=== PATIENT | male | born 1965 | race African-American/Black ===

== ENCOUNTER 2016-11-07 22:50 | Emergency (ER) | payer BC ==
[~2016-11-07] VITALS: Ht 188 cm; Wt 95.3 kg
[~2016-11-07 22:50] MED LIST: LEVO100T5 PO; METO25TA9 PO; ONDA4TAB12 PO
[2016-11-07 23:11] LABS: BASO % 1 % (0-3); EOS % 1 % (0-3); HEMATOCRIT 40.5 % (39.0-53.0); HEMOGLOBIN 13.4 g/dL (13.0-17.5); LYMPH # 2.4 x10^3/uL (1.0-4.8); LYMPH % 34 % (24-48); MEAN CORPUSCULAR HEMOGLOBIN 31 pg (25-35); MEAN CORPUSCULAR HGB CONC 33 g/dL (31-37); MEAN CORPUSCULAR VOLUME 93 fL (79-100); MONO % 12 % (0-9); NEUT % 52 % (31-73); PLATELET COUNT 202 x10^3/uL (140-400); RED BLOOD COUNT 4.34 x10^6/uL (4.30-5.70); RED CELL DISTRIBUTION WIDTH 14.5 % (11.5-14.5); WHITE BLOOD COUNT 6.9 x10^3/uL (4.0-11.0)
[2016-11-07] MEDS ORDERED: NITROGLYCERIN SUBLINGUAL 0.4 MG BOTTLE OF 25. SL PRN (23:15)
[2016-11-07] MEDS ORDERED: ONDANSETRON PF 4 MG/2 ML VIAL. IV ONE (23:15)
[2016-11-07 23:21] LABS: CALCIUM 8.9 mg/dL (8.5-10.1); GFR 95.7
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
[2016-11-07 23:27] LABS: ALBUMIN 3.9 g/dL (3.4-5.0); DIRECT BILIRUBIN 0.1 mg/dL (0.0-0.2); TOTAL BILIRUBIN 0.3 mg/dL (0.2-1.0); TOTAL PROTEIN 7.6 g/dL (6.4-8.2)
[2016-11-07] MEDS ORDERED: ASPIRIN 81 MG TAB.CHEW PO ONE (23:30)
[2016-11-08 01:00] VITALS: BP 115/77
[2016-11-08] MEDS ORDERED: ACETAMINOPHEN 325 MG TABLET. PO PRN (01:15)
[2016-11-08] MEDS ORDERED: MORPHINE SULFATE 2 MG/ML DISP.SYRIN. IV PRN (01:15)
[2016-11-08] MEDS ORDERED: ONDANSETRON PF 4 MG/2 ML VIAL. IV PRN (01:15)
--- NOTE | 2016-11-08 06:16 | EKG ---
[facility] [address] [place] [address] Test Date: 2016-11-07 Test Time: 22:55:54 Pat Name: VICKY DUARTE Department: Room: Gender: M Ride Operator: : 1965 Requested By: LORRAINE HALL Order Number: [id number] Reading MD: Paige Suarez Measurements Intervals [place] Rate: 83 P: 49 [place]: 148 QRS: 38 QRSD: 90 T: 34 QT: 336 QTc: 400 Interpretive Statements SINUS RHYTHM NORMAL EKG Electronically Signed On 11-10-2016 10:45:20 CDT by Paige Suarez
--- NOTE | 2016-11-08 07:26 | RAD ---
Indication: Chest pain. Technique: Two-view chest radiograph was obtained. Comparison is from April 24, 2014. Findings: Calcified granuloma on the right is stable. There is no airspace disease. There is no pleural effusion. The heart is not enlarged and there is no heart failure. There is an old left rib fracture. Impression: No acute thoracic findings.
== END 2016-11-08 01:25 | disposition left against medical advice (07) ==
LOC: ER 22:50
DX: R07.89 Other chest pain (principal); R06.02 Shortness of breath; I11.0 Hypertensive heart disease with heart failure; I50.9 Heart failure, unspecified; E03.9 Hypothyroidism, unspecified; F10.10 Alcohol abuse, uncomplicated; Z88.0 Allergy status to penicillin
CPT/HCPCS: 36415; 71020; 80048; 80076; 83690; 83880; 84484; 85027; 93005; 96374; 99285; J2405

== ENCOUNTER 2018-05-25 17:42 | Emergency (ER) | payer BC, OTHER ==
[~2018-05-25 17:42] MED LIST changes: +METO-239 PO; -METO25TA9 PO
== END 2018-05-25 19:00 | disposition left against medical advice (07) ==
LOC: ER 17:42
DX: M25.561 Pain in right knee (principal); R22.41 Localized swelling, mass and lump, right lower limb; M79.606 Pain in leg, unspecified; Z53.21 Procedure and treatment not carried out due to patient leaving prior to being seen by health care provider

== ENCOUNTER 2018-07-22 03:40 | Emergency (ER) | payer MEDICARE, OTHER ==
[~2018-07-22] VITALS: Ht 188 cm; Wt 95.3 kg
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
[2018-07-22 04:38] LABS: BASO % 0 % (0-3); EOS % 0 % (0-3); HEMATOCRIT 43.1 % (39.0-53.0); HEMOGLOBIN 15.2 g/dL (13.0-17.5); LYMPH # 1.2 x10^3/uL (1.0-4.8); LYMPH % 14 % (24-48); MEAN CORPUSCULAR HEMOGLOBIN 32 pg (25-35); MEAN CORPUSCULAR HGB CONC 35 g/dL (31-37); MEAN CORPUSCULAR VOLUME 91 fL (79-100); MONO # 0.7 x10^3/uL (0.0-1.1); MONO % 7 % (0-9); NEUT # 6.9 x10^3uL (1.8-7.7); NEUT % 79 % (31-73); PLATELET COUNT 214 x10^3/uL (140-400); RED BLOOD COUNT 4.73 x10^6/uL (4.30-5.70); RED CELL DISTRIBUTION WIDTH 14.1 % (11.5-14.5); WHITE BLOOD COUNT 8.8 x10^3/uL (4.0-11.0)
[2018-07-22] MEDS ORDERED: CONTRAST GIVEN. MC PRN (04:45)
[2018-07-22 04:48] LABS: BILIRUBIN,URINE NEGATIVE (NEG); CLARITY,URINE CLEAR; COLOR,URINE YELLOW; NITRITE,URINE NEGATIVE (NEG); PH,URINE 5.5; PROTEIN,URINE 30 mg/dL (NEG-TRACE); UROBILINOGEN,URINE 0.2 mg/dL (0.2 mg/dL)
[2018-07-22 04:49] LABS: PROTHROMBIN TIME PATIENT 12.4 SEC (11.7-14.0)
[2018-07-22 04:50] LABS: CALCIUM 9.4 mg/dL (8.5-10.1); CREATININE 0.9 mg/dL (0.7-1.3); GFR 107.2; POTASSIUM 3.8 mmol/L (3.5-5.1)
[2018-07-22 04:55] LABS: ALBUMIN 4.1 g/dL (3.4-5.0); ALBUMIN/GLOBULIN RATIO 1.1 (1.0-1.7); TOTAL BILIRUBIN 0.8 mg/dL (0.2-1.0)
[2018-07-22 04:55] LABS: BACTERIA,URINE 0 /HPF (0-FEW); RBC,URINE OCC /HPF (0-2); SQUAMOUS EPITHELIAL CELL,UR OCC /LPF; WBC,URINE OCC /HPF (0-4)
[2018-07-22] MEDS ORDERED: fentaNYL PF VIAL 100 MCG/2 ML VIAL IV ONE (05:00)
[2018-07-22] MEDS ORDERED: IOHEXOL 240 MG/ML 50ML VIAL. PO ONE (05:00)
[2018-07-22] MEDS ORDERED: FAMOTIDINE 20 MG/2 ML VIAL IVP ONE (05:00)
[2018-07-22] MEDS ORDERED: ONDANSETRON PF 4 MG/2 ML VIAL. IV ONE (05:00)
[2018-07-22] MEDS ORDERED: IOHEXOL 300 MG/ML 100ML VIAL. IV ONE (05:00)
[2018-07-22] MEDS ORDERED: IV NORMAL SALINE 1000ML BAG 1,000 ML IV ONE (05:00)
[2018-07-22] MEDS ORDERED: MORPHINE SULFATE 4 MG/ML VIAL. IV ONE (05:30)
[2018-07-22] MEDS ORDERED: IV RINGERS,LACTATED 500ML 1,000 ML IV ONE (07:00)
--- NOTE | 2018-07-22 07:02 | RAD ---
PQRS Compliance Statement: One or more of the following individualized dose reduction techniques were utilized for this examination: 1. Automated exposure control 2. Adjustment of the mA and/or kV according to patient size 3. Use of iterative reconstruction technique CT abdomen/pelvis with contrast 07/22/2018 6:34 AM INDICATION: Abdominal pain, nausea COMPARISON: CT abdomen/pelvis May 05, 2016 TECHNIQUE: Multiple axial CT images of the abdomen and pelvis were obtained after the intravenous administration of 75 mL Omnipaque 300. Coronal and sagittal reformats are provided. FINDINGS: Mild subsegmental atelectasis at the left lung base. Heart size is within normal limits. Hypoattenuation of the hepatic parenchyma suggestive of hepatic steatosis. Coarse calcification is noted along the lateral aspect of the anterior superior segment of the right hepatic lobe which may be sequela of prior vascular or infectious insult. Spleen, bilateral adrenal glands, pancreas and gallbladder are normal in appearance. Abdominal aorta is normal in course and caliber with moderate calcified atheromatous plaque. No pathologically enlarged lymph nodes are identified in the abdomen and pelvis. There is no free fluid or free intraperitoneal air. The kidneys enhance symmetrically. There is no suspicious renal mass. There is no hydronephrosis. There are no suspected calculi within the kidneys, ureters or urinary bladder. There is mild diverticulosis. Oral contrast was administered. Opacified bowel loops demonstrate normal mucosal fold pattern. Mild bowel wall thickening involving the ascending colon and transverse colon extending to the splenic flexure. There is no significant pericolonic inflammatory change. Consideration may be given for colitis versus underdistention. No pericolonic abscess or pneumoperitoneum. Small fat-containing bilateral inguinal hernias are identified. Urinary bladder is within normal limits given degree of distention. Prostate and seminal vesicles are normal in appearance. No suspicious osseous abnormality is identified. IMPRESSION: 1. Mild bowel wall thickening involving the ascending colon and transverse colon extending to the splenic flexure. There is no significant pericolonic inflammatory change. Consideration may be given for colitis versus underdistention. Given distribution, ischemic colitis is a differential consideration. 2. Mild diverticulosis. Electronically signed by: Khloe Corona MD (07/22/2018 6:58 AM) [id number]
[2018-07-22 07:18] VITALS: BP 195/109
[2018-07-22] MEDS ORDERED: TRAM50TA PO (07:18)
[2018-07-22] MEDS ORDERED: MESA800T2 PO (07:18)
[2018-07-22] MEDS ORDERED: METO10TA81 PO (07:18)
[2018-07-22] MEDS ORDERED: KETOROLAC 15 MG/ML VIAL. IV ONE (07:30)
--- NOTE | 2018-07-22 16:02 | EKG ---
[facility] [address] [place] [address] Test Date: 2018-07-22 Test Time: 04:31:33 Pat Name: VICKY DUARTE Department: Room: Gender: M Business Analysis Specialist: : 1965 Requested By: REYNA MURRAY Order Number: [id number] Reading MD: Krishan Maravilla Measurements Intervals [place] Rate: 107 P: 83 SD: 132 QRS: 20 QRSD: 84 T: 44 QT: 330 QTc: 446 Interpretive Statements SINUS TACHYCARDIA QRS(T) CONTOUR ABNORMALITY CONSISTENT WITH ANTEROSEPTAL INFARCT PROBABLY OLD ABNORMAL ECG Electronically Signed On 07-24-2018 11:07:32 SERGER by Krishan Maravilla
== END 2018-07-22 07:45 | disposition home or self-care (01) ==
LOC: ER 03:40
DX: R10.84 Generalized abdominal pain (principal); K59.00 Constipation, unspecified; E03.9 Hypothyroidism, unspecified; I11.0 Hypertensive heart disease with heart failure; I50.9 Heart failure, unspecified; F17.210 Nicotine dependence, cigarettes, uncomplicated; F10.20 Alcohol dependence, uncomplicated; Y90.9 Presence of alcohol in blood, level not specified; Z88.0 Allergy status to penicillin
CPT/HCPCS: 36415; 74177; 80053; 81001; 82553; 83690; 84484; 85025; 85610; 85730; 93005; 96361; 96374; 96375; 99284; J1885; J2270; J2405; J3010; J3490; J7030; J7120; Q9966; Q9967

== ENCOUNTER 2019-07-12 10:23 | Inpatient (IN) | payer OTHER ==
[~2019-07-12] VITALS: Ht 188 cm; Wt 88.5 kg
[~2019-07-12 10:23] MED LIST changes: +MESA800T2 PO; +METO10TA81 PO; +TRAM50TA PO
[2019-07-12 10:59] LABS: BASO # 0.1 x10^3/uL (0.0-0.2); BASO % 1 % (0-3); EOS % 0 % (0-3); HEMATOCRIT 38.6 % (39.0-53.0); HEMOGLOBIN 13.1 g/dL (13.0-17.5); LYMPH # 1.8 x10^3/uL (1.0-4.8); LYMPH % 18 % (24-48); MEAN CORPUSCULAR HEMOGLOBIN 30 pg (25-35); MEAN CORPUSCULAR HGB CONC 34 g/dL (31-37); MEAN CORPUSCULAR VOLUME 88 fL (79-100); MONO # 1.6 x10^3/uL (0.0-1.1); MONO % 16 % (0-9); NEUT # 6.4 x10^3/uL (1.8-7.7); NEUT % 64 % (31-73); PLATELET COUNT 370 x10^3/uL (140-400); RED BLOOD COUNT 4.39 x10^6/uL (4.30-5.70); RED CELL DISTRIBUTION WIDTH 13.8 % (11.5-14.5)
[2019-07-12] MEDS ORDERED: IV NORMAL SALINE 1000ML BAG 1,000 ML IV ONE (11:00)
[2019-07-12 11:08] LABS: PROTHROMBIN TIME PATIENT 12.7 SEC (11.7-14.0)
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
[2019-07-12 11:14] LABS: BILIRUBIN,URINE NEGATIVE (NEG); CLARITY,URINE CLEAR; COLOR,URINE YELLOW; NITRITE,URINE NEGATIVE (NEG); PH,URINE 7.5; PROTEIN,URINE NEGATIVE (NEG-TRACE); UROBILINOGEN,URINE 0.2 mg/dL (0.2 mg/dL)
[2019-07-12] MEDS ORDERED: ONDANSETRON PF 4 MG/2 ML VIAL. IV ONE (11:15)
[2019-07-12] MEDS ORDERED: MORPHINE SULFATE 4 MG/ML VIAL. IV ONE (11:15)
--- NOTE | 2019-07-12 11:21 | RAD ---
EXAM: PA and Lateral Views of the Chest DATE: 07/12/2019 10:49 AM INDICATION: Weakness, chest tightness, pain with inspiration COMPARISON: 11/07/2016, 07/22/2018 FINDINGS/ IMPRESSION: Compared to prior radiograph 11/07/2016, there is now a prominent anterior mediastinal mass with mild mass effect on the trachea extending into the right greater than left paratracheal region. This should be further assessed with CT. Small right lung nodule or patchy opacities are seen. No pleural effusion or pneumothorax. Findings of thoracic mass discussed with referring provider Abigail Smart with recommendation of CT chest at 07/12/2019, 11:15 AM. Electronically signed by: Darrin Haas MD (07/12/2019 11:18 AM) [id number]
[2019-07-12 11:22] LABS: CALCIUM 10.4 mg/dL (8.5-10.1); CREATININE 0.8 mg/dL (0.7-1.3); GFR 122.4; POTASSIUM 4.4 mmol/L (3.5-5.1)
[2019-07-12 11:24] LABS: BACTERIA,URINE 0 /HPF (0-FEW); SQUAMOUS EPITHELIAL CELL,UR OCC /LPF; WBC,URINE OCC /HPF (0-4)
[2019-07-12 11:28] LABS: ALBUMIN 3.3 g/dL (3.4-5.0); ALBUMIN/GLOBULIN RATIO 0.6 (1.0-1.7); TOTAL BILIRUBIN 0.4 mg/dL (0.2-1.0); TOTAL PROTEIN 9.2 g/dL (6.4-8.2)
[2019-07-12] MEDS ORDERED: IOHEXOL 350 MG/ML 100 ML VIAL. IV ONE (11:30)
[2019-07-12] MEDS ORDERED: CONTRAST GIVEN. MC PRN (11:30)
[2019-07-12 11:39] LABS: CREATINE KINASE 48 U/L (39-308)
--- NOTE | 2019-07-12 11:59 | EKG ---
[facility] [address] [place] [address] Test Date: 2019-07-12 Test Time: 10:36:01 Pat Name: VICKY DUARTE Department: Room: Gender: M Knowledge Engineer: : 1965 Requested By: KATRINA AG Order Number: [id number] Reading MD: Measurements Intervals [place] Rate: 112 P: 90 ID: [id number] QRS: 8 QRSD: 88 T: 31 QT: 308 QTc: 422 Interpretive Statements SINUS TACHYCARDIA QRS(T) CONTOUR ABNORMALITY CONSIDER ANTEROLATERAL MYOCARDIAL DAMAGE CONSIDER INFERIOR MYOCARDIAL DAMAGE POSSIBLY ABNORMAL ECG RI6.01 No previous ECG available for comparison
--- NOTE | 2019-07-12 12:11 | RAD ---
Chest CTA History: Shortness of air, mediastinal mass Technique: After bolus of intravenous contrast, CT imaging was performed of the chest. Multiplanar reconstruction images to include MIP reconstruction images are submitted. Exposure: One or more of the following individualized dose reduction techniques were utilized for this examination: 1. Automated exposure control 2. Adjustment of the mA and/or kV according to patient size 3. Use of iterative reconstruction technique. Comparison: None other than CT abdomen pelvis exam June 2018 Findings: Exam is nondiagnostic for evaluation for pulmonary embolic disease due to degree of contrast opacification of the pulmonary arteries. Thoracic aortic caliber is overall within normal limits. There is some motion degradation which limits accurate evaluation for nonflow limiting dissection flap of the ascending thoracic aorta, no convincing dissection flap identified. There is a large mass of the mediastinum eccentric to the right about 6.1 cm transverse by 6.5 cm AP by about 5.4 cm CC. Internal density measurements are about 42 Hounsfield units. 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 There is some coronary calcification. There is noncalcified right upper lobe pulmonary mass with somewhat spiculated margins about 1.7 cm CC by 1.7 cm AP by 1.7 cm transverse best seen image 62 series 3. There are a couple small irregular nodules of the right upper lobe closer to the apex such as seen image 35, largest about 0.5 cm. There is separate calcified nodule of the right upper lobe. There is no pleural or pericardial fluid. Minimal density of the right lower lobe near the base more likely atelectasis. There is probable hepatic steatosis. There is new left adrenal nodule about 2 cm. There is a new lytic lesion of the anterior right T12 vertebral body about 1.6 cm AP. There is superior thoracic levoscoliosis. Impression: 1. There is large right mediastinal mass, also spiculated right upper lobe pulmonary mass which may be due to primary lung neoplasm. There is new lytic lesion of the T12 vertebral body and new left adrenal nodule concerning for metastatic disease. There are a couple of small right upper lobe pulmonary nodules near the apex. 2. There is coronary calcification. 3. Exam is nondiagnostic for evaluation for pulmonary embolic disease. Electronically signed by: Davis Cleary MD (07/12/2019 12:09 PM) [id number]
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
[2019-07-12] MEDS ORDERED: cefTRIAXone IV Push 1 GM VIAL. IVP ONE (13:15)
[2019-07-12 15:24] VITALS: BP 165/90
[2019-07-12] MEDS ORDERED: LISI1TAB19 PO (15:47)
[2019-07-12] MEDS ORDERED: VARE1TAB21 PO (15:47)
[2019-07-12] MEDS ORDERED: ATOR20TA58 PO (15:47)
[2019-07-12] MEDS ORDERED: FLU VAX QS 2019-20 (36MOS+)/PF 0.5 ML SYRINGE. VAX IM ONE (16:00)
[2019-07-12] MEDS: fentaNYL PF VIAL 100 MCG/2 ML VIAL IVP PRN ×2 (16:02→20:21)
[2019-07-12] MEDS: hydroCHLOROthiazide 12.5 MG CAPSULE PO SCH (16:04)
[2019-07-12] MEDS: LISINOPRIL 20 MG TABLET PO SCH (16:04)
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
[2019-07-12] MEDS: LORazepam 0.5 MG TABLET PO PRN (16:57)
[2019-07-12] MEDS: oxyCODONE/APAP 5/325 1 TAB TABLET PO PRN ×2 (16:58→23:36)
[2019-07-12 19:30] VITALS: BP 154/81
[2019-07-12] MEDS: ATORVASTATIN CALCIUM 20 MG TABLET PO SCH (20:21)
[2019-07-12] MEDS: ZOLPIDEM 5 MG TABLET. PO PRN (22:14)
[2019-07-12 22:59] VITALS: BP 153/96
[2019-07-13] VITALS (7 sets, daily range): BP systolic 127–162; BP diastolic 88–101
[2019-07-13] MEDS: LEVOTHYROXINE 100 MCG TABLET PO SCH (03:51)
[2019-07-13] MEDS: fentaNYL PF VIAL 100 MCG/2 ML VIAL IVP PRN ×5 (06:40→23:19)
[2019-07-13] MEDS: hydroCHLOROthiazide 12.5 MG CAPSULE PO SCH (07:46)
[2019-07-13] MEDS ORDERED: LIDOCAINE WITH 8.4% SOD BICARB 3 ML DISP.SYRIN. ONE (07:46)
[2019-07-13] MEDS: LISINOPRIL 20 MG TABLET PO SCH (07:47)
[2019-07-13] MEDS ORDERED: fentaNYL PF VIAL 100 MCG/2 ML VIAL ONE (07:58)
[2019-07-13] MEDS ORDERED: MIDAZOLAM HCL/PF 2 MG/2 ML VIAL. ONE ×2 (07:58→09:04)
[2019-07-13] MEDS ORDERED: MIDAZOLAM HCL/PF 2 MG/2 ML VIAL. IV ONE (08:45)
[2019-07-13] MEDS ORDERED: fentaNYL PF VIAL 100 MCG/2 ML VIAL IV ONE (08:45)
[2019-07-13] MEDS ORDERED: LIDOCAINE WITH 8.4% SOD BICARB 3 ML DISP.SYRIN. IJ ONE (08:45)
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
[2019-07-13] MEDS ORDERED: NON FORMULARY ITEM (Lisinopril/Hydrochlorothiazide (Lisinopril-Hctz 20-12.5 Mg Tab) 1 TAB) PO SCH (09:00)
[2019-07-13] MEDS: LORazepam 0.5 MG TABLET PO PRN (09:43)
[2019-07-13] MEDS: oxyCODONE/APAP 5/325 1 TAB TABLET PO PRN ×3 (09:44→22:43)
--- NOTE | 2019-07-13 10:09 | NUR ---
SW following for discharge planning. Discussed with RN, pt is from home with . CT guided biopsy today. RN advised no SW needs at this time. SW will continue to follow.
[2019-07-13] MEDS ORDERED: fentaNYL 12MCG/HR PATCH 1 PATCH PATCH.TD72 TD SCH (11:45)
[2019-07-13] MEDS: POLYETHYLENE GLYCOL 3350 17 GM PACKET. PO SCH (11:48)
[2019-07-13] MEDS: PSYLLIUM HUSK (SUGAR FREE) 1 PKT PACKET PO SCH (11:48)
[2019-07-13] MEDS: IPRATRPIUM/ALBUTEROL 0.5/2.5MG 3 ML NEBU. NEB SCH ×3 (12:00→20:46)
--- NOTE | 2019-07-13 12:14 | PDOC ---
PULMONARY PROGRESS NOTES Subjective s/p bx of thoracic spine some back pain Vitals Vital Signs Date Time Temp Pulse Resp B/P (MAP) Pulse Ox O2 Delivery O2 Flow Rate FiO2 07/13/19 11:51 96 Room Air 07/13/19 10:39 97.6 116 18 127/94 (105) 97.6 07/13/19 09:23 2.0 ROS: No Chest Pain General: Alert, No acute distress Lungs: Clear Cardiovascular: S1 Abdomen: Soft Neuro Exam: Alert Extremities: No Edema Skin: Warm Labs Laboratory Tests Test 07/12/19 10:45 07/12/19 11:05 White Blood Count 10.0 x10^3/uL (4.0-11.0) Red Blood Count 4.39 x10^6/uL (4.30-5.70) Hemoglobin 13.1 g/dL (13.0-17.5) Hematocrit 38.6 % (39.0-53.0) Mean Corpuscular Volume 88 fL (79-100) Mean Corpuscular Hemoglobin 30 pg (25-35) Mean Corpuscular Hemoglobin Concent 34 g/dL (31-37) Red Cell Distribution Width 13.8 % (11.5-14.5) Platelet Count 370 x10^3/uL (140-400) Neutrophils (%) (Auto) 64 % (31-73) Lymphocytes (%) (Auto) 18 % (24-48) Monocytes (%) (Auto) 16 % (0-9) Eosinophils (%) (Auto) 0 % (0-3) Basophils (%) (Auto) 1 % (0-3) Neutrophils # (Auto) 6.4 x10^3/uL (1.8-7.7) Lymphocytes # (Auto) 1.8 x10^3/uL (1.0-4.8) Monocytes # (Auto) 1.6 x10^3/uL (0.0-1.1) Eosinophils # (Auto) 0.0 x10^3/uL (0.0-0.7) Basophils # (Auto) 0.1 x10^3/uL (0.0-0.2) Prothrombin Time 12.7 SEC (11.7-14.0) Prothromb Time International Ratio 1.0 (0.8-1.1) Activated Partial Thromboplast Time 40 SEC (24-38) Sodium Level 136 mmol/L (136-145) Potassium Level 4.4 mmol/L (3.5-5.1) Chloride Level 98 mmol/L (98-107) Carbon Dioxide Level 30 mmol/L (21-32) Anion Gap 8 (6-14) Blood Urea Nitrogen 12 mg/dL (8-26) Creatinine 0.8 mg/dL (0.7-1.3) Estimated GFR (Cockcroft-Gault) 122.4 BUN/Creatinine Ratio 15 (6-20) Glucose Level 110 mg/dL (70-99) Lactic Acid Level 1.1 mmol/L (0.4-2.0) Calcium Level 10.4 mg/dL (8.5-10.1) Total Bilirubin 0.4 mg/dL (0.2-1.0) Aspartate Amino Transf (AST/SGOT) 21 U/L (15-37) Alanine Aminotransferase (ALT/SGPT) 13 U/L (16-63) Alkaline Phosphatase 118 U/L (46-116) Creatine Kinase 48 U/L (39-308) Creatine Kinase MB (Mass) < 0.5 ng/mL (0.0-3.6) Creatine Kinase MB Relative Index % (0-4) Troponin I Quantitative < 0.017 ng/mL (0.000-0.055) Total Protein 9.2 g/dL (6.4-8.2) Albumin 3.3 g/dL (3.4-5.0) Albumin/Globulin Ratio 0.6 (1.0-1.7) Urine Collection Type Unknown Urine Color Yellow Urine Clarity Clear Urine pH 7.5 Urine Specific [place] 1.010 Urine Protein Negative mg/dL (NEG-TRACE) Urine Glucose (UA) Negative mg/dL (NEG) Urine Ketones (Stick) Negative mg/dL (NEG) Urine Blood Negative (NEG) Urine Nitrite Negative (NEG) Urine Bilirubin Negative (NEG) Urine Urobilinogen Dipstick 0.2 mg/dL (0.2 mg/dL) Urine Leukocyte Esterase Negative (NEG) Urine RBC 1-2 /HPF (0-2) Urine WBC Occ /HPF (0-4) Urine Squamous Epithelial Cells Occ /LPF Urine Bacteria 0 /HPF (0-FEW) Medications Active Scripts Medications Dose Route/Sig Max Daily Dose Days Date Category Chantix (Varenicline Tartrate) 1 Mg Tablet 1 Mg PO BID 07/12/19 Reported Lisinopril-Hctz 20-12.5 Mg Tab (Lisinopril/Hydrochlorothiazide) 1 Each Tablet 1 Tab PO DAILY 07/12/19 Reported Atorvastatin Calcium 20 Mg Tablet 20 Mg PO HS 07/12/19 Reported Levothyroxine Sodium 100 Mcg Tablet 1 Tab PO DAILY 04/24/14 Reported Impression . 1. Abnormal CT chest with a large mediastinal mass, right upper lobe spiculated mass, T12 lytic lesion and left adrenal gland metastasis. These findings are highly suspicious for stage 4 bronchogenic cancer favoring small cell cancer. s/p CT-guided biopsy of T-spine lytic lesion to confirm the diagnosis. 2. Dyspnea secondary to large mediastinal mass and underlying possible chronic obstructive pulmonary disease. 3. Back pain, likely due to thoracic lytic lesion. Plan . 1. s/p CT-guided biopsy of T12 lesion to make a definite diagnosis. 2. Once diagnosis is confirmed, then he would need Medical Oncology and Radiation Oncology consults. 3. Continue empiric antibiotics for now. 4. P.r.n. bronchodilators. 5. Discussed with RN and DR Brady . further recommendations to follow. MARISOL TIMMONS MD Jul 13, 2019 12:14
--- NOTE | 2019-07-13 16:06 | RAD ---
Fluoroscopically guided biopsy, T12 vertebral body. 07/13/2019 2:00 PM Clinical Indication: T12 lytic lesion, likely metastasis. Discussion: The procedure was explained in its entirety to the patient or the patients designated field representative/health education by a member of the treatment team, including a discussion of the risks, benefits and commonly accepted alternatives to the procedure, as well as the expected consequences of no therapy whatsoever. Discussion of the risks included, but was not limited to, those that are most frequent and those that are rare but possibly severe or life-threatening, as well as the possibility of unforeseen complications. All elements of maximal sterile barrier technique including the use of a cap, mask, sterile gown, sterile gloves, large sterile sheet, appropriate hand hygiene, and 2% chlorhexidine for cutaneous antisepsis (or acceptable alternative antiseptic per current guidelines) were followed for this procedure. The posterior thoracolumbar junction was prepped and draped using sterile barrier technique. 1% lidocaine was administered for local anesthesia. Under direct fluoroscopic guidance a trocar needle was advanced into transpedicular fashion into the middle, superior right side of the T12 vertebral body. Multiple core biopsies were obtained and placed in formalin. [place] were removed and manual pressure was held. No immediate complications were identified. Total fluoroscopy time: 6.0 min Dose area product: 4196.1 [id number] The procedures performed under conscious sedation including continuous cardiopulmonary monitoring via dedicated sedation nurse. [id number] sedation time:35 min Impression: T12 vertebral body biopsy
[2019-07-13] MEDS: ATORVASTATIN CALCIUM 20 MG TABLET PO SCH (20:01)
[2019-07-13] MEDS: ZOLPIDEM 5 MG TABLET. PO PRN (22:37)
[2019-07-14] MEDS: fentaNYL PF VIAL 100 MCG/2 ML VIAL IVP PRN ×4 (02:37→20:22)
[2019-07-14 03:00] VITALS: BP 140/94
[2019-07-14] MEDS: LEVOTHYROXINE 100 MCG TABLET PO SCH (06:38)
[2019-07-14 07:00] VITALS: BP 166/87
[2019-07-14] MEDS: IPRATRPIUM/ALBUTEROL 0.5/2.5MG 3 ML NEBU. NEB SCH ×4 (08:18→19:32)
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
--- NOTE | 2019-07-14 08:33 | PDOC ---
PULMONARY PROGRESS NOTES Subjective s/p bx of thoracic spine pain is better, has sob, cough, neb tx helps Vitals Vital Signs Date Time Temp Pulse Resp B/P (MAP) Pulse Ox O2 Delivery O2 Flow Rate FiO2 07/14/19 08:18 97 Room Air 07/14/19 07:00 98.1 107 18 166/87 (113) 98.1 07/13/19 09:23 2.0 ROS: No Chest Pain General: Alert, No acute distress Lungs: Clear Cardiovascular: S1, S2 Abdomen: Soft, Non-tender Neuro Exam: Alert, Oriented Extremities: No Edema Skin: Warm Labs Laboratory Tests Test 07/12/19 10:45 07/12/19 11:05 White Blood Count 10.0 x10^3/uL (4.0-11.0) Red Blood Count 4.39 x10^6/uL (4.30-5.70) Hemoglobin 13.1 g/dL (13.0-17.5) Hematocrit 38.6 % (39.0-53.0) Mean Corpuscular Volume 88 fL (79-100) Mean Corpuscular Hemoglobin 30 pg (25-35) Mean Corpuscular Hemoglobin Concent 34 g/dL (31-37) Red Cell Distribution Width 13.8 % (11.5-14.5) Platelet Count 370 x10^3/uL (140-400) Neutrophils (%) (Auto) 64 % (31-73) Lymphocytes (%) (Auto) 18 % (24-48) Monocytes (%) (Auto) 16 % (0-9) Eosinophils (%) (Auto) 0 % (0-3) Basophils (%) (Auto) 1 % (0-3) Neutrophils # (Auto) 6.4 x10^3/uL (1.8-7.7) Lymphocytes # (Auto) 1.8 x10^3/uL (1.0-4.8) Monocytes # (Auto) 1.6 x10^3/uL (0.0-1.1) Eosinophils # (Auto) 0.0 x10^3/uL (0.0-0.7) Basophils # (Auto) 0.1 x10^3/uL (0.0-0.2) Prothrombin Time 12.7 SEC (11.7-14.0) Prothromb Time International Ratio 1.0 (0.8-1.1) Activated Partial Thromboplast Time 40 SEC (24-38) Sodium Level 136 mmol/L (136-145) Potassium Level 4.4 mmol/L (3.5-5.1) Chloride Level 98 mmol/L (98-107) Carbon Dioxide Level 30 mmol/L (21-32) Anion Gap 8 (6-14) Blood Urea Nitrogen 12 mg/dL (8-26) Creatinine 0.8 mg/dL (0.7-1.3) Estimated GFR (Cockcroft-Gault) 122.4 BUN/Creatinine Ratio 15 (6-20) Glucose Level 110 mg/dL (70-99) Lactic Acid Level 1.1 mmol/L (0.4-2.0) Calcium Level 10.4 mg/dL (8.5-10.1) Total Bilirubin 0.4 mg/dL (0.2-1.0) Aspartate Amino Transf (AST/SGOT) 21 U/L (15-37) Alanine Aminotransferase (ALT/SGPT) 13 U/L (16-63) Alkaline Phosphatase 118 U/L (46-116) Creatine Kinase 48 U/L (39-308) Creatine Kinase MB (Mass) < 0.5 ng/mL (0.0-3.6) Creatine Kinase MB Relative Index % (0-4) Troponin I Quantitative < 0.017 ng/mL (0.000-0.055) Total Protein 9.2 g/dL (6.4-8.2) Albumin 3.3 g/dL (3.4-5.0) Albumin/Globulin Ratio 0.6 (1.0-1.7) Urine Collection Type Unknown Urine Color Yellow Urine Clarity Clear Urine pH 7.5 Urine Specific [place] 1.010 Urine Protein Negative mg/dL (NEG-TRACE) Urine Glucose (UA) Negative mg/dL (NEG) Urine Ketones (Stick) Negative mg/dL (NEG) Urine Blood Negative (NEG) Urine Nitrite Negative (NEG) Urine Bilirubin Negative (NEG) Urine Urobilinogen Dipstick 0.2 mg/dL (0.2 mg/dL) Urine Leukocyte Esterase Negative (NEG) Urine RBC 1-2 /HPF (0-2) Urine WBC Occ /HPF (0-4) Urine Squamous Epithelial Cells Occ /LPF Urine Bacteria 0 /HPF (0-FEW) Medications Active Scripts Medications Dose Route/Sig Max Daily Dose Days Date Category Chantix (Varenicline Tartrate) 1 Mg Tablet 1 Mg PO BID 07/12/19 Reported Lisinopril-Hctz 20-12.5 Mg Tab (Lisinopril/Hydrochlorothiazide) 1 Each Tablet 1 Tab PO DAILY 07/12/19 Reported Atorvastatin Calcium 20 Mg Tablet 20 Mg PO HS 07/12/19 Reported Levothyroxine Sodium 100 Mcg Tablet 1 Tab PO DAILY 04/24/14 Reported Impression . 1. Abnormal CT chest with a large mediastinal mass, right upper lobe spiculated mass, T12 lytic lesion and left adrenal gland metastasis. These findings are highly suspicious for stage 4 bronchogenic cancer favoring small cell cancer. s/p CT-guided biopsy of T-spine lytic lesion to confirm the diagnosis. 2. Dyspnea secondary to large mediastinal mass and underlying possible chronic obstructive pulmonary disease. 3. Back pain, likely due to thoracic lytic lesion. Plan . 1. s/p CT-guided biopsy of T12 lesion to make a definite diagnosis. fu path 2. Once diagnosis is confirmed, then he would need Medical Oncology and Radiation Oncology consults. 3. Continue empiric antibiotics for now. 4. bronchodilators qid 5. Discussed with pt, further recommendations to follow. VALERIO KANG MD Jul 14, 2019 08:33
[2019-07-14] MEDS: hydroCHLOROthiazide 12.5 MG CAPSULE PO SCH (08:49)
[2019-07-14] MEDS: LISINOPRIL 20 MG TABLET PO SCH (08:49)
[2019-07-14] MEDS: oxyCODONE/APAP 5/325 1 TAB TABLET PO PRN ×3 (08:52→22:43)
[2019-07-14] MEDS: PSYLLIUM HUSK (SUGAR FREE) 1 PKT PACKET PO SCH (08:54)
[2019-07-14] MEDS: POLYETHYLENE GLYCOL 3350 17 GM PACKET. PO SCH (08:54)
[2019-07-14 11:00] VITALS: BP 145/91
[2019-07-14] MEDS ORDERED: guaiFENesin DM 200MG/20MG 10 ML SYRUP PO PRN (11:00)
[2019-07-14] MEDS: ENOXAPARIN 40 MG/0.4 ML SYRINGE. SQ SCH (11:35)
[2019-07-14 15:00] VITALS: BP 148/87
[2019-07-14 19:15] VITALS: BP 154/89
[2019-07-14] MEDS: ATORVASTATIN CALCIUM 20 MG TABLET PO SCH (20:59)
[2019-07-14] MEDS: ZOLPIDEM 5 MG TABLET. PO PRN (20:59)
[2019-07-14 23:02] VITALS: BP 178/90
[2019-07-15 02:57] VITALS: BP 136/87
[2019-07-15] MEDS: LEVOTHYROXINE 100 MCG TABLET PO SCH (05:48)
[2019-07-15] MEDS: oxyCODONE/APAP 5/325 1 TAB TABLET PO PRN ×3 (05:50→23:01)
[2019-07-15 07:00] VITALS: BP 141/79
[2019-07-15] MEDS: IPRATRPIUM/ALBUTEROL 0.5/2.5MG 3 ML NEBU. NEB SCH ×4 (08:13→19:30)
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
--- NOTE | 2019-07-15 08:27 | PDOC ---
PULMONARY PROGRESS NOTES Subjective s/p bx of thoracic spine has back pain, sob, cough better w neb tx Vitals Vital Signs Date Time Temp Pulse Resp B/P (MAP) Pulse Ox O2 Delivery O2 Flow Rate FiO2 07/15/19 08:13 98 Room Air 07/15/19 02:57 98.4 112 18 136/87 (103) 98.4 07/14/19 22:43 2.0 ROS: No Nausea, No Chest Pain General: Alert, No acute distress Lungs: Clear Cardiovascular: S1, S2 Abdomen: Soft, Non-tender Neuro Exam: Alert, Oriented Extremities: No Edema Skin: Warm Medications Active Scripts Medications Dose Route/Sig Max Daily Dose Days Date Category Chantix (Varenicline Tartrate) 1 Mg Tablet 1 Mg PO BID 07/12/19 Reported Lisinopril-Hctz 20-12.5 Mg Tab (Lisinopril/Hydrochlorothiazide) 1 Each Tablet 1 Tab PO DAILY 07/12/19 Reported Atorvastatin Calcium 20 Mg Tablet 20 Mg PO HS 07/12/19 Reported Levothyroxine Sodium 100 Mcg Tablet 1 Tab PO DAILY 04/24/14 Reported Impression . 1. Abnormal CT chest with a large mediastinal mass, right upper lobe spiculated mass, T12 lytic lesion and left adrenal gland metastasis. These findings are highly suspicious for stage 4 bronchogenic cancer favoring small cell cancer. s/p CT-guided biopsy of T-spine lytic lesion to confirm the diagnosis. 2. Dyspnea secondary to large mediastinal mass and underlying possible chronic obstructive pulmonary disease. 3. Back pain, likely due to thoracic lytic lesion. Plan . 1. s/p CT-guided biopsy of T12 lesion to make a definite diagnosis. path pending 2. Once diagnosis is confirmed, then he would need Medical Oncology and Radiation Oncology consults. 3. Continue empiric antibiotics for now. 4. bronchodilators qid 5. Discussed with pt, further recommendations to follow. VALERIO KANG MD Jul 15, 2019 08:27
[2019-07-15] MEDS: hydroCHLOROthiazide 12.5 MG CAPSULE PO SCH (08:47)
[2019-07-15] MEDS: LISINOPRIL 20 MG TABLET PO SCH (08:47)
[2019-07-15] MEDS: POLYETHYLENE GLYCOL 3350 17 GM PACKET. PO SCH ×2 (09:00→09:59)
[2019-07-15] MEDS: PSYLLIUM HUSK (SUGAR FREE) 1 PKT PACKET PO SCH ×2 (09:00→09:59)
[2019-07-15] MEDS: fentaNYL PF VIAL 100 MCG/2 ML VIAL IVP PRN ×3 (09:53→20:14)
[2019-07-15 11:00] VITALS: BP 138/88
[2019-07-15] MEDS: ENOXAPARIN 40 MG/0.4 ML SYRINGE. SQ SCH (12:25)
[2019-07-15] MEDS ORDERED: fentaNYL 25MCG/HR PATCH 1 PATCH PATCH.TD72 TD SCH (13:30)
[2019-07-15 15:00] VITALS: BP 123/73
[2019-07-15 19:00] VITALS: BP 137/78
[2019-07-15] MEDS: ATORVASTATIN CALCIUM 20 MG TABLET PO SCH (20:14)
[2019-07-15 23:00] VITALS: BP 123/62
[2019-07-15] MEDS: ZOLPIDEM 5 MG TABLET. PO PRN (23:01)
[2019-07-16 03:00] VITALS: BP 131/72
[2019-07-16] MEDS: LEVOTHYROXINE 100 MCG TABLET PO SCH (06:16)
[2019-07-16] MEDS: fentaNYL PF VIAL 100 MCG/2 ML VIAL IVP PRN ×2 (06:16→10:38)
[2019-07-16 07:00] VITALS: BP 121/67
[2019-07-16] MEDS: IPRATRPIUM/ALBUTEROL 0.5/2.5MG 3 ML NEBU. NEB SCH ×3 (07:07→15:24)
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
--- NOTE | 2019-07-16 09:28 | PDOC ---
PULMONARY PROGRESS NOTES Subjective s/p bx of thoracic spine has back pain, sob, cough better w neb tx Vitals Vital Signs Date Time Temp Pulse Resp B/P (MAP) Pulse Ox O2 Delivery O2 Flow Rate FiO2 07/16/19 08:55 96 Room Air 2.0 07/16/19 07:00 98.0 106 18 121/67 (85) 98.0 ROS: No Nausea, No Chest Pain General: Alert, No acute distress Lungs: Clear Cardiovascular: S1, S2 Abdomen: Soft, Non-tender Neuro Exam: Alert, Oriented Extremities: No Edema Skin: Warm Medications Active Scripts Medications Dose Route/Sig Max Daily Dose Days Date Category Chantix (Varenicline Tartrate) 1 Mg Tablet 1 Mg PO BID 07/12/19 Reported Lisinopril-Hctz 20-12.5 Mg Tab (Lisinopril/Hydrochlorothiazide) 1 Each Tablet 1 Tab PO DAILY 07/12/19 Reported Atorvastatin Calcium 20 Mg Tablet 20 Mg PO HS 07/12/19 Reported Levothyroxine Sodium 100 Mcg Tablet 1 Tab PO DAILY 04/24/14 Reported Impression . 1. Abnormal CT chest with a large mediastinal mass, right upper lobe spiculated mass, T12 lytic lesion and left adrenal gland metastasis. These findings are highly suspicious for stage 4 bronchogenic cancer favoring small cell cancer. s/p CT-guided biopsy of T-spine lytic lesion to confirm the diagnosis. 2. Dyspnea secondary to large mediastinal mass and underlying possible chronic obstructive pulmonary disease. 3. Back pain, likely due to thoracic lytic lesion. Plan . 1. s/p CT-guided biopsy of T12 lesion to make a definite diagnosis. path pending 2. Once diagnosis is confirmed, then he would need Medical Oncology and Radiation Oncology consults. 3. Continue empiric antibiotics for now. 4. bronchodilators qid 5. Discussed with pt, further recommendations to follow. ADRIANNA TENORIO MD Jul 16, 2019 09:28
[2019-07-16] MEDS: hydroCHLOROthiazide 12.5 MG CAPSULE PO SCH (09:33)
[2019-07-16] MEDS: LISINOPRIL 20 MG TABLET PO SCH (09:33)
[2019-07-16 11:00] VITALS: BP 118/78
--- NOTE | 2019-07-16 11:16 | NUR ---
SW following for discharge planning. Chart reviewed, discussed with RN and Dr. Brady. Pt is from home with , ivonne. Awaiting pathology results. No PT/OT needs at this time. Pt is currently requiring 2L o2. SW will continue to follow for discharge planning needs.
[2019-07-16] MEDS: ENOXAPARIN 40 MG/0.4 ML SYRINGE. SQ SCH (12:41)
[2019-07-16] MEDS: oxyCODONE/APAP 5/325 1 TAB TABLET PO PRN (12:44)
[2019-07-16] MEDS ORDERED: OXYC1TAB15 PO (13:09)
[2019-07-16] MEDS ORDERED: FENT1PAT17 TP (13:09)
[2019-07-16] MEDS ORDERED: LORA0.5T96 PO (13:11)
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
[2019-07-16] MEDS ORDERED: oxyCODONE/APAP 5/325 1 TAB TABLET PO ONE (16:30)
--- NOTE | 2019-07-16 16:52 | NUR ---
Discharge Note: VICKY DUARTE [address] [place] [address] Discharge instructions and discharge home medications reviewed with Patient and a copy given. All questions have been answered and understanding verbalized. The following instructions and handouts were given: Diet, activity, medication list and follow up instructions provided to patient. Patient directed to follow up with Dr. Angel or Dr. Mcgee at next available appointment and Dr. Fields at next available appointment. Dr. Gomez instructed to follow up as needed. Discontinued lines and drains: Peripheral IV discontinued and catheter intact. Patient discharged to Home or Self Care with Spouse via Ambulated
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
--- NOTE | 2019-07-17 16:06 | PATHOLOGY ---
[facility] Accession Number: [id number] . 01 Material submitted: . vertebral column - T12 BONE BX . 01 Clinical history: . Bone lesion, right lung mass . 02 Diagnosis: Segments of fibrous tissue, blood clot, cartilage and bone, T-12 bone lesion needle biopsies: - METASTATIC POORLY DIFFERENTIATED ADENOCARCINOMA. SEE COMMENT. (JPM:erika; 07/16/2019) QMS 07/16/2019 0928 Local . 02 Comment: Sections of the T12 bone lesion biopsy reveal segments of fibrous tissue, blood clot, and minute segments of bone and cartilage. The segments of fibrous tissue reveal a metastatic epithelial neoplasm. The malignant cells are present in small irregular nests and focally form acinar structures. The malignant cells have moderate amounts of pale eosinophilic cytoplasm, and possess enlarged, moderately pleomorphic hyperchromatic nuclei containing prominent nucleoli. There are mitotic figures present. A panel of immunoperoxidase stains is obtained on block A1 and yields the following results: . Cytokeratin 7: Tumor cells positive. Cytokeratin 20: Tumor cells negative. P40: Tumor cells negative. CDX2: Tumor cells negative. TTF-1: Tumor cells negative. Napsin A: Tumor cells negative. . . The morphologic and immunophenotypic findings are supportive of the diagnosis of metastatic poorly differentiated adenocarcinoma, and are consistent with a lung primary. Correlate clinically. The case is also examined by Dr. Sal, who concurs with the diagnosis. The results are reported to Dr. Gomez on 07/16/19, and are reported to Dr. Vickers at 3:50 PM on 07/17/19. . . . . (JPM:erika; 07/16/2019) . Special stains performed: Immunoperoxidase stains for CK7, CK20, CDX2, TTF-1, napsin A and p40. . 02 Electronically signed: . Az Millan MD, Pathologist NPI- [id number] . 01 Gross description: . Received in formalin labeled "[place], T-12 bone BX," are multiple segments of dark brown tissue admixed with small fragments of possible bone measuring approximately 1.0 x 0.4 x 0.2 cm in aggregate dimensions. The specimen is filtered and entirely submitted in cassette A1, following decalcification. (TSD; 07/13/2019) TOB/TOB 07/13/2019 1659 Local . 02 Pathologist provided ICD-10: C79.51 . 02 CPT . 581924, P97444, X30442, 892551 Specimen Comment: A courtesy copy of this report has been sent to [phone], [phone] Specimen Comment: [phone], , , Specimen Comment: Report sent to Specimen Comment: Report sent to ,DR VICKERS,DR AG / DR NG Specimen Comment: DR TIMMONS Performed at: 01 [facility] [address], [place], [place] [id number] MD Ryan Walton MD Phone: [phone] Performed at: 02 [facility] [address] [place], [place] [id number] MD Az Millan MD Phone: [phone]
== END 2019-07-16 16:50 | disposition home or self-care (01) | DRG 167 ==
LOC: ER 10:23 → 4 NORTH 12:59
PROVIDERS: ADMIT Internal Medicine; ATTEND Internal Medicine
PROC: 0PB43ZX Excision of Thoracic Vertebra, Percutaneous Approach, Diagnostic (ICD-10-PCS; principal; 2019-07-13)
DX: C34.11 Malignant neoplasm of upper lobe, right bronchus or lung (principal); C79.51 Secondary malignant neoplasm of bone; C79.72 Secondary malignant neoplasm of left adrenal gland; E03.9 Hypothyroidism, unspecified; F41.9 Anxiety disorder, unspecified; I11.0 Hypertensive heart disease with heart failure; I25.10 Atherosclerotic heart disease of native coronary artery without angina pectoris; I50.9 Heart failure, unspecified; M41.9 Scoliosis, unspecified; R13.10 Dysphagia, unspecified; Z80.9 Family history of malignant neoplasm, unspecified; Z82.49 Family history of ischemic heart disease and other diseases of the circulatory system; Z87.891 Personal history of nicotine dependence; Z71.6 Tobacco abuse counseling; Z79.899 Other long term (current) drug therapy; Z88.0 Allergy status to penicillin
CPT/HCPCS: 20225; 36415; 71046; 71275; 76942; 80053; 81001; 82553; 83605; 84484; 85025; 85610; 85730; 87040; 88305; 88311; 88341; 88342; 90471; 90686; 93005; 94640; 94760; 96374; 96375; 99152; 99153; J0696; J1650; J2250; J2270; J2405; J3010; J7030; J7620; Q9967; 99285-25; G0378

== ENCOUNTER 2019-09-17 18:26 | Emergency (ER) | payer OTHER ==
[~2019-09-17] VITALS: Ht 188 cm; Wt 68.2 kg
[~2019-09-17 18:26] MED LIST changes: +ATOR20TA58 PO; +FENT1PAT17 TP; +LISI1TAB19 PO; +LORA0.5T96 PO; +OXYC1TAB15 PO; +VARE1TAB21 PO
[2019-09-17] MEDS: IV NORMAL SALINE 1000ML BAG 1,000 ML IV SCH (18:50)
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
[2019-09-17 19:06] LABS: BASO # 0.1 x10^3/uL (0.0-0.2); BASO % 1 % (0-3); EOS % 0 % (0-3); HEMATOCRIT 27.9 % (39.0-53.0); HEMOGLOBIN 9.5 g/dL (13.0-17.5); LYMPH # 1.1 x10^3/uL (1.0-4.8); LYMPH % 12 % (24-48); MEAN CORPUSCULAR HEMOGLOBIN 29 pg (25-35); MEAN CORPUSCULAR HGB CONC 34 g/dL (31-37); MEAN CORPUSCULAR VOLUME 83 fL (79-100); MONO # 0.4 x10^3/uL (0.0-1.1); MONO % 4 % (0-9); NEUT % 84 % (31-73); PLATELET COUNT 463 x10^3/uL (140-400); RED BLOOD COUNT 3.35 x10^6/uL (4.30-5.70); RED CELL DISTRIBUTION WIDTH 15.3 % (11.5-14.5); WHITE BLOOD COUNT 9.5 x10^3/uL (4.0-11.0)
[2019-09-17 19:15] LABS: CALCIUM 9.6 mg/dL (8.5-10.1); GFR 94.6; POTASSIUM 4.3 mmol/L (3.5-5.1)
[2019-09-17 19:21] LABS: ALBUMIN 2.2 g/dL (3.4-5.0); ALBUMIN/GLOBULIN RATIO 0.4 (1.0-1.7); TOTAL BILIRUBIN 0.3 mg/dL (0.2-1.0); TOTAL PROTEIN 7.7 g/dL (6.4-8.2)
--- NOTE | 2019-09-17 19:29 | RAD ---
Exam: Chest one view INDICATION: Weakness TECHNIQUE: Frontal view of the chest Comparisons: CT 07/12/2019 FINDINGS: The cardiomediastinal silhouette and pulmonary vessels are within normal limits. Right perihilar mass is again noted. Remaining lungs are clear. No pleural effusion. IMPRESSION: Large right perihilar/upper mediastinal mass. Remaining lungs are clear. Electronically signed by: Li Nunez MD (09/17/2019 7:26 PM) [facility]
[2019-09-17 19:38] LABS: INFLUENZA A PATIENT NEGATIVE (NEGATIVE); INFLUENZA B PATIENT NEGATIVE (NEGATIVE)
[2019-09-17 20:30] LABS: BILIRUBIN,URINE NEGATIVE (NEG); COLOR,URINE YELLOW; NITRITE,URINE NEGATIVE (NEG); PROTEIN,URINE NEGATIVE (NEG-TRACE); UROBILINOGEN,URINE 0.2 mg/dL (0.2 mg/dL)
[2019-09-17 20:34] LABS: CLARITY,URINE CLEAR
[2019-09-17 20:35] LABS: BACTERIA,URINE 0 /HPF (0-FEW); RBC,URINE 0 /HPF (0-2); WBC,URINE OCC /HPF (0-4)
[2019-09-17] MEDS ORDERED: CEFD300C PO (21:18)
[2019-09-17] MEDS ORDERED: CIPR500T PO (21:18)
[2019-09-17 21:47] VITALS: BP 121/68
--- NOTE | 2019-09-18 06:52 | EKG ---
[facility] [address] [place] [address] Test Date: 2019-09-17 Test Time: 18:59:07 Pat Name: VICKY DUARTE Department: Room: Gender: M [employer]: : 1965 Requested By: NEVILLE PAEZ Order Number: [id number] Reading MD: Measurements Intervals [place] Rate: 105 P: 51 [place]: 120 QRS: 33 QRSD: 86 T: 49 QT: 308 QTc: 411 Interpretive Statements SINUS TACHYCARDIA NO SPECIFIC ECG ABNORMALITIES RI6.01 No previous ECG available for comparison
[2019-09-18] MEDS ORDERED: PROC10TA57 PO (08:58)
[2019-09-18] MEDS ORDERED: FOLI0.8C PO (08:58)
[2019-09-18] MEDS ORDERED: ZOLP10TA4 PO (08:58)
[2019-09-18] MEDS ORDERED: DEXA4TAB PO (08:58)
[2019-09-18] MEDS ORDERED: PNV1TABL78 PO (08:58)
[2019-09-18] MEDS ORDERED: SMZ/TMP DS 800-160 PO (08:58)
== END 2019-09-17 21:55 | disposition home or self-care (01) ==
LOC: ER 18:26
DX: R50.9 Fever, unspecified (principal); R10.84 Generalized abdominal pain; R53.1 Weakness; I11.0 Hypertensive heart disease with heart failure; I50.9 Heart failure, unspecified; E03.9 Hypothyroidism, unspecified; F10.20 Alcohol dependence, uncomplicated; Y90.9 Presence of alcohol in blood, level not specified; Z88.0 Allergy status to penicillin
CPT/HCPCS: 36415; 71045; 80053; 81001; 83605; 85025; 87040; 87070; 87804; 87880; 93005; 99285; J7030

== ENCOUNTER 2019-09-18 08:28 | Outpatient (CLI) | payer OTHER ==
[~2019-09-18] VITALS: Ht 188 cm; Wt 72.6 kg
[2019-09-18] VITALS (7 sets, daily range): BP systolic 104–134; BP diastolic 63–72
[~2019-09-18 08:28] MED LIST changes: +CEFD300C PO; +CIPR500T PO
[2019-09-18 08:53] LABS: BASO % 0 % (0-3); EOS % 0 % (0-3); HEMATOCRIT 27.2 % (39.0-53.0); HEMOGLOBIN 9.3 g/dL (13.0-17.5); LYMPH % 10 % (24-48); MEAN CORPUSCULAR HEMOGLOBIN 28 pg (25-35); MEAN CORPUSCULAR HGB CONC 34 g/dL (31-37); MEAN CORPUSCULAR VOLUME 84 fL (79-100); MONO # 0.4 x10^3/uL (0.0-1.1); MONO % 4 % (0-9); NEUT # 8.5 x10^3/uL (1.8-7.7); NEUT % 86 % (31-73); PLATELET COUNT 456 x10^3/uL (140-400); RED BLOOD COUNT 3.26 x10^6/uL (4.30-5.70); RED CELL DISTRIBUTION WIDTH 15.6 % (11.5-14.5); WHITE BLOOD COUNT 9.8 x10^3/uL (4.0-11.0)
[2019-09-18] MEDS ORDERED: PROC10TA57 PO (08:58)
[2019-09-18] MEDS ORDERED: FOLI0.8C PO (08:58)
[2019-09-18] MEDS ORDERED: DEXA4TAB PO (08:58)
[2019-09-18] MEDS ORDERED: PNV1TABL78 PO (08:58)
[2019-09-18] MEDS ORDERED: SMZ/TMP DS 800-160 PO (08:58)
[2019-09-18] MEDS ORDERED: ZOLP10TA4 PO (08:58)
[2019-09-18] MEDS ORDERED: NALOXONE 0.4 MG/ML VIAL. ONE (10:10)
[2019-09-18] MEDS ORDERED: FLUMAZENIL 0.5 MG/5 ML VIAL. IV ONE (10:10)
[2019-09-18] MEDS ORDERED: fentaNYL PF VIAL 100 MCG/2 ML VIAL ONE (10:10)
[2019-09-18] MEDS ORDERED: MIDAZOLAM HCL/PF 2 MG/2 ML VIAL. ONE (10:10)
[2019-09-18] MEDS ORDERED: LIDOCAINE 1%/EPI 1:100,000 20 ML VIAL. ONE (10:15)
[2019-09-18] MEDS ORDERED: HEPARIN PF 500 UNIT/5 ML DISP.SYRIN. ONE (10:24)
[2019-09-18 10:27] LABS: % LYMPHS 9 % (24-48); % MONOS 3 % (0-10); % SEGS 88 % (35-66); PLT ESTIMATE INCREASED (ADEQUATE)
[2019-09-18] MEDS ORDERED: ceFAZolin SODIUM IV Push 1 GM VIAL. IVP PRN (10:30)
[2019-09-18] MEDS ORDERED: LIDOCAINE 1%/EPI 1:100,000 20 ML VIAL. SQ ONE (11:00)
[2019-09-18] MEDS ORDERED: fentaNYL PF VIAL 100 MCG/2 ML VIAL IV ONE (11:00)
[2019-09-18] MEDS ORDERED: MIDAZOLAM HCL/PF 2 MG/2 ML VIAL. IV ONE (11:00)
--- NOTE | 2019-09-18 12:37 | NUR ---
Discharge Note: VICKY DUARTE Discharge instructions and discharge home medications reviewed with Patient and a copy given. All questions have been answered and understanding verbalized. The following instructions and handouts were given: adult moderate sedation and implanted port info. Discontinued lines and drains: Peripheral IV intact. Patient discharged to Home or Self Care withSpousevia Wheelchair
--- NOTE | 2019-09-18 12:48 | RAD ---
Procedure: Ultrasound and fluoroscopically guided placement of right internal jugular power port.. 09/18/2019 10:44 AM Clinical Indication: LUNG CA Sedation: Conscious sedation was administered for 38 minutes. The patient was monitored by a qualified independent observer throughout the time of sedation. Please refer to the medical record for exact doses of medications utilized to achieve moderate sedation. Fluoroscopy time: 1.1 min Dose area product: 2 Gycm2 Consent: The procedure was explained in its entirety to the patient or the patients designated appeals representative by a member of the treatment team, including a discussion of the risks, benefits and commonly accepted alternatives to the procedure, as well as the expected consequences of no therapy whatsoever. Discussion of the risks included, but was not limited to, those that are most frequent and those that are rare but possibly severe or life-threatening, as well as the possibility of unforeseen complications. Technique and Findings: All elements of maximal sterile barrier technique including the use of a cap, mask, sterile gown, sterile gloves, large sterile sheet, appropriate hand hygiene, and 2% chlorhexidine for cutaneous antisepsis (or acceptable alternative antiseptic per current guidelines) were followed for this procedure. Following informed consent, and a timeout procedure, the patient was prepped and draped in the usual sterile fashion. Ultrasound interrogation of the right neck revealed patency and compressibility of the right internal jugular vein. A 21-gauge micropuncture was then used to gain access to this vein under ultrasound guidance. A hard copy ultrasound image was recorded. The needle was exchanged over a wire for a sheath. A 1 inch incision was made several centimeters inferior to the venotomy site. A catheter was tunneled from this site dermatotomy site in the neck. Catheter was advanced through peel-away sheath such that its tip was in the proximal right atrium with the patient supine. The catheter was trimmed to length and connected to the port reservoir. The port was found to flush and aspirate normally. The wound was closed in layers using 4-0 Vicryl suture. Sterile dressings were applied. Impression: Successful ultrasound and fluoroscopically guided placement of a right internal jugular PowerPort
== END 2019-09-18 12:38 | disposition home or self-care (01) ==
LOC: INTRAD 08:28
PROVIDERS: ATTEND Internal Medicine Hematology & Oncology
DX: Z45.2 Encounter for adjustment and management of vascular access device (principal); C34.11 Malignant neoplasm of upper lobe, right bronchus or lung; Z79.01 Long term (current) use of anticoagulants; Z88.0 Allergy status to penicillin
CPT/HCPCS: 36415; 36561; 76937; 77001; 85025; 85610; 85730; C1751; C1892; J0690; J2250; J3010; J3490; 85007; 99152; 99153

== ENCOUNTER → 2019-09-25 | Outpatient (CLI) | payer OTHER ==
[2019-09-18 12:15] VITALS: BP 106/64
[~2019-09-25] MED LIST changes: +CONTRAST GIVEN. MC PRN; +DEXA4TAB PO; +FOLI0.8C PO; +IOHEXOL 240 MG/ML 50ML VIAL. PO ONE; +IOHEXOL 300 MG/ML 100ML VIAL. IV ONE; +PNV1TABL78 PO; +PROC10TA57 PO; +SMZ/TMP DS 800-160 PO; +ZOLP10TA4 PO
--- NOTE | 2019-09-25 15:39 | RAD ---
EXAM: CT OF THE CHEST, ABDOMEN AND PELVIS WITH CONTRAST. HISTORY: Lung cancer. TECHNIQUE: Computed tomography of the chest, abdomen and pelvis was performed after the intravenous administration of iodinated contrast. One or more of the following individualized dose reduction techniques were utilized for this examination: 1. Automated exposure control. 2. Adjustment of the mA and/or kV according to patient size. 3. Use of iterative reconstruction technique. COMPARISON: 09/11/2018. FINDINGS: Bone windows reveal a mild pathologic superior plate compression deformity at T12 associated with an underlying lytic lesion. There is a focal moderate upper thoracic levoscoliosis associated with a left-sided hemivertebra. Bulky right paratracheal lymphadenopathy results in a confluent mass that measures 7.5 x 6.6 cm. The superior vena cava and the confluence of the brachiocephalic veins is very compressed but remains patent. A right port catheter traverses the superior vena cava and has its tip in the superior cavoatrial junction. The right common carotid artery is encased along short segment. 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 A right supraclavicular lymph node measures 1.3 cm and is new since the prior study. There is no pleural or pericardial effusion. The heart is not enlarged. There are atherosclerotic calcifications of the coronary arteries. Calcified mediastinal lymph nodes are likely secondary to old granulomatous disease. A right upper lobe spiculated nodule measures 9 mm and has decreased from 1.5 cm previously. There is scarring in the right apex. Calcified granulomas are noted elsewhere. A right adrenal nodule is consistent with a metastasis and is new since the prior study. It measures 1.4 cm. A left adrenal nodule has increased slightly and now measures 1.9 cm as compared with 1.7 cm. There are calcified granulomas in the right hepatic lobe. The gallbladder, pancreas, kidneys and spleen are unremarkable. Sigmoid diverticulosis is moderate. There is no small bowel obstruction. Surgical clips are noted in the left upper quadrant. There are no pathologically enlarged lymph nodes. IMPRESSION: 1. A spiculated a right upper lobe nodule has decreased in size since the prior study and now measures 9 mm. 2. Bulky right paratracheal lymphadenopathy is not clearly changed. There is severely compresses the superior vena cava and encases the right common carotid artery. 3. Small involved right supraclavicular lymph nodes have increased. 4. New right adrenal metastasis. Slightly increased left adrenal metastasis. 5. New mild superior endplate compression deformity at T12 associated with a pre-existing lytic lesion. Electronically signed by: Comfort Baker MD (09/25/2019 3:36 PM) [facility]
== END | disposition home or self-care (01) ==
LOC: CT 11:02
PROVIDERS: ATTEND Internal Medicine Hematology & Oncology
DX: C79.71 Secondary malignant neoplasm of right adrenal gland (principal); C34.11 Malignant neoplasm of upper lobe, right bronchus or lung; I25.10 Atherosclerotic heart disease of native coronary artery without angina pectoris; R91.8 Other nonspecific abnormal finding of lung field; K57.30 Diverticulosis of large intestine without perforation or abscess without bleeding
CPT/HCPCS: 71260; 74177; Q9966; Q9967

== ENCOUNTER → 2020-01-01 | Outpatient (CLI) | payer OTHER ==
[2019-12-03 09:01] VITALS: BP 125/69
[~2020-01-01] MED LIST changes: +APIX5TAB PO; +CITA20TA6 PO; +MAGN400C PO
--- NOTE | 2020-01-01 12:52 | RAD ---
EXAM: CT Chest, Abdomen, and Pelvis with IV contrast INDICATION: Malignant neoplasm of right lung. TECHNIQUE: Multi-detector row CT images were acquired from the thoracic inlet through the ischial tuberosities with the use of IV contrast. Sagittal and coronal images were acquired from the transaxial data. All CT scans performed at this facility utilize dose optimization techniques as appropriate to the exam, including the following: Automated exposure control and adjustment of the mA and/or KV according to patient size (this includes techniques or standardized protocols for targeted exams where dose is indication/reason for exam). IV CONTRAST: Administered ORAL CONTRAST: Administered COMPARISON: 09/25/2019 chest, abdomen and pelvis CT with IV contrast FINDINGS: CHEST: CARDIOVASCULAR: Right jugular approach tunneled central venous catheter redemonstrated with tip in the right atrium. Aberrant right subclavian artery. Normal heart size. Trace pericardial effusion measuring up to 6 mm in depth. SVC remains markedly narrowed from extrinsic mass effect by the mediastinal mass. MEDIASTINUM & TANIA: Interval decrease in size of the hypovascular anterior mediastinal mass, now measuring 4.0 x 6.5 x 6.1 cm in oblique AP by oblique transverse by craniocaudal dimensions as measured on images 20 of axial series 2 and 25 of coronal series 5. This represents a decrease from 7.6 x 5.6 x 7.9 cm as measured at the comparable levels on the prior examination (images 20 of series 2 and 24 of series 5 on that study). LUNGS: Spiculated right upper lobe lung nodule appears to be developing a second lobe, best illustrated on axial image 25 of series 2. It measures 11 mm in craniocaudal extent compared with 9 mm previously. There is a new 2.3 cm groundglass opacity in the anterior left upper lobe (image 25 of series 2). Additional smaller groundglass opacities are also noted in the left upper lobe and left lower lobe. PLEURAL SPACE: No pleural effusions or pneumothorax. OSSEOUS & SOFT TISSUE: Stable pathologic superior endplate compression deformity at T11 without interval progression. New sclerotic lesions in T3-T6. T4 is a left hemivertebra causing levoscoliosis of the thoracic spine. Stable postsurgical changes in the right posterior paraspinal musculature at the T10-T11 level. ABDOMEN/PELVIS: LIVER: Stable peripheral calcifications in the right hepatic lobe no hepatic lesions. BILIARY SYSTEM: Gallbladder is unremarkable. Bile ducts are not dilated. PANCREAS: Unremarkable SPLEEN: Unremarkable ADRENALS: Left adrenal mass is enlarged from 2.1 cm to 3.5 cm. Right adrenal mass is not significantly changed measuring 1.5 x 1.9 cm compared with 1.5 x 2.1 cm previously. KIDNEYS & URETERS: Unremarkable BLADDER: Unremarkable REPRODUCTIVE ORGANS: Unremarkable GASTROINTESTINAL: The stomach, small bowel, and colon are unremarkable. The appendix is normal. MESENTERY/PERITONEUM/RETROPERITONEUM: Unremarkable VASCULAR: Unremarkable LYMPH NODES: No adenopathy OSSEOUS & SOFT TISSUES: Permeative osteolysis in the left iliac bone is more apparent in the interval (image 66 series 4 this exam compared with image 64 series 4 prior). There is a likely soft tissue component protruding in to the deep aspect of the left iliac is muscle. IMPRESSION: 1. Decrease in bulk of mediastinal adenopathy, compatible with a treatment response.. 2. Slight enlargement in spiculated right upper lobe lung nodule. 3. Multiple new groundglass opacities in the lungs, primarily on the left, potentially treatment-related changes. 4. New sclerotic lesions in the upper thoracic spine, of concern for newly apparent osteoblastic metastases. 5. Stable right adrenal mass and interval enlargement of the left adrenal mass consistent with a metastasis. 6. Increasing permeative osteolysis in the left iliac bone. Cannot exclude osteolytic metastatic disease at this site. Electronically signed by: Clyde Perry MD (01/01/2020 12:49 PM) [id number]
== END | disposition home or self-care (01) ==
LOC: CT 08:54
PROVIDERS: ATTEND Internal Medicine Hematology & Oncology
DX: C34.91 Malignant neoplasm of unspecified part of right bronchus or lung (principal); J98.59 Other diseases of mediastinum, not elsewhere classified; J98.4 Other disorders of lung; K76.89 Other specified diseases of liver; I31.3 Pericardial effusion (noninflammatory); M43.8X4 Other specified deforming dorsopathies, thoracic region; M41.84 Other forms of scoliosis, thoracic region
CPT/HCPCS: 71260; 74177; Q9966; Q9967

== ENCOUNTER → 2020-01-25 | Outpatient (CLI) | payer OTHER, MEDICAID ==
[2019-12-03 09:01] VITALS: BP 125/69
[~2020-01-25] MED LIST changes: -CONTRAST GIVEN. MC PRN; -IOHEXOL 240 MG/ML 50ML VIAL. PO ONE; -IOHEXOL 300 MG/ML 100ML VIAL. IV ONE
--- NOTE | 2020-01-25 15:09 | RAD ---
CLINICAL HISTORY: Reason: lung adenocarcinoma, bone metastatis / Spl. Instructions: / History: COMPARISON: No prior study is available for comparison. TECHNIQUE: Radiopharmaceutical Dose: 26 mCi Tc99m MDP intravenous Approximately 2-4 hours after the administration of tracer, the patient was instructed to void and whole body images were obtained in the anterior and posterior projections. In addition lateral spot views of the pelvis were also obtained. FINDINGS: Increased radiotracer uptake is seen within the left iliac wing and left ischial tuberosity/inferior pubic ramus as well as the lower thoracic vertebral body (likely T12). These findings likely represent metastatic disease, as seen on prior CT. Few foci of uptake within the feet, likely degenerative. Thoracic scoliosis likely from developmental vertebral anomaly. IMPRESSION: Mild radiotracer uptake within the left iliac wing, left ischial tuberosity/inferior pubic ramus and T12 vertebral body corresponding to lytic lesions on prior CT, consistent with metastatic disease. No definite additional suspicious focus of radiotracer uptake is seen. Radiation Dosimetry: The radiopharmaceutical used for this exam delivers approximately 0.21 mSv/mCi (21 mRem/mCi) Source: RADIATION DOSE ESTIMATES TO ADULTS AND CHILDREN, [place]; Effective dose RADAR Electronically signed by: Darrin Haas MD (01/25/2020 3:06 PM) [id number]
== END | disposition home or self-care (01) ==
LOC: NM 08:23
PROVIDERS: ATTEND Radiology Radiation Oncology
DX: C34.11 Malignant neoplasm of upper lobe, right bronchus or lung (principal); C79.51 Secondary malignant neoplasm of bone; M41.84 Other forms of scoliosis, thoracic region
CPT/HCPCS: 78306; A9503

== ENCOUNTER → 2020-02-18 | Outpatient (CLI) | payer MEDICAID ==
[2019-12-03 09:01] VITALS: BP 125/69
[~2020-02-18] MED LIST changes: +GADOTERATE 7.5 MMOL/15ML VIAL. IVP ONE
--- NOTE | 2020-02-18 12:34 | RAD ---
MRI Lumbar Spine without and with contrast History: Back pain, lung cancer Technique: Multiplanar, multi sequential pre and postcontrast MR imaging was performed of the lumbar spine. Comparison: CT exam January 01, 2020 of the abdomen pelvis Findings: There is heterogeneous signal and enhancement of the left iliac bone. Just anteriorly, there is an enhancing soft tissue mass along the posterior aspect of the left iliacus muscle, not fully included at least 4.3 cm transverse oblique by about 2 cm AP oblique. Lumbar vertebral body stature is overall maintained, small inferior L4 Schmorl's node which is associated with mild nonspecific increased STIR signal and mild enhancement the anterior periphery. There is a small 3 mm focus of STIR hyperintense signal of the more central L5 vertebral body although may be extent of venous plexus otherwise difficult to characterize given small size. There is mild degenerative disc disease L4-5 and L5-S1, mild disc desiccation at L3-4. There is degenerative change of the corners at multiple levels. Conus terminates near T12-L1. There is no nodular enhancement of the conus or cauda equina, no significant enhancement in the intervertebral disc spaces. There is posterior annular tear L5-S1. Barely included, there is heterogeneous signal of the T11 vertebral body anteriorly. L1-L2: Neural foramina and spinal canal are adequate. L2-L3: There is moderate facet hypertrophic change and minimal buckling of the ligamentum flavum. Neural foramina and spinal canal are adequate. L3-L4: There is mild to moderate facet degenerative change and mild buckling of the ligamentum flavum. There is very minimal disc osteophyte complex and bulge. There is very mild narrowing of the far lateral recesses bilaterally, central canal adequate. There is mild narrowing of the left neural foramen, disc osteophyte complex and bulge near the undersurface of proximal extraforaminal left L3 nerve root without displacement. Right neural foramen is overall adequate. L4-L5: There is negligible disc osteophyte complex and bulge. There is mild buckling of the ligamentum flavum and facet hypertrophic change. There is mild narrowing of the far lateral recesses bilaterally. Neural foramina are overall adequate. L5-S1: There is posterior protrusion about 2 mm AP, near the descending S1 nerve roots without displacement. Spinal canal is not significantly narrowed. There is minimal buckling of the ligamentum flavum and facet degenerative change. Neural foramina are adequate. Impression: 1. There is marrow replacing process of the left iliac bone with adjacent soft tissue mass anteriorly extending along the posterior aspect of the left iliacus muscle, evidence of metastatic disease. Barely included, there is some heterogeneous signal of the anterior T11 vertebral body, underlying marrow replacing lesion not excluded. 2. There is nonspecific mild edema associated small inferior L4 Schmorl's node, also tiny focus of marrow signal change of the more central L5 vertebral body otherwise difficult to further accurately characterize although possibly extent of venous plexus. 3. There is no significant lumbar spinal stenosis, minimal narrowing of the far lateral recesses at L3-4 and L4-5 as described. There is mild narrowing of the left L3-4 neural foramen. Electronically signed by: Davis Cleary MD (02/18/2020 12:31 PM) [id number]
== END | disposition home or self-care (01) ==
LOC: MRI 11:18
PROVIDERS: ATTEND Radiology Radiation Oncology
DX: M47.896 Other spondylosis, lumbar region (principal); M25.78 Osteophyte, vertebrae; M51.46 Schmorl's nodes, lumbar region; C34.11 Malignant neoplasm of upper lobe, right bronchus or lung
CPT/HCPCS: 72158; A9575

== ENCOUNTER → 2020-02-27 | Outpatient (CLI) | payer MEDICAID ==
[2019-12-03 09:01] VITALS: BP 125/69
[~2020-02-27] MED LIST changes: +ONDA4TAB7 PO; +OXYC5CAP PO; +PROM25TA10 PO
--- NOTE | 2020-02-27 12:08 | RAD ---
MRI of the thoracic spine without and with contrast 02/27/2020 CLINICAL HISTORY: Mid back pain. History of metastatic lung cancer. TECHNIQUE: Unenhanced T1-weighted, T2-weighted and inversion recovery sagittal and T1-weighted and T2-weighted axial images of the thoracic spine were obtained. After the intravenous administration of 15 cc of DOTAREM, enhanced T1-weighted sagittal and axial images of the thoracic spine were obtained. FINDINGS: Comparison is made to images from a bone scan dated 01/25/2020. Additional comparison is made to patient's recent MRI of the lumbar spine dated 02/18/2020. Moderate S-shaped curvature of the cervicothoracic spine is seen. There is congenital left hemivertebrae between the T3 and T4 vertebral bodies. This is excluded for counting purposes. Counting from the cervical spinal inferiorly, a heterogeneous metastasis is seen involving the right anterior aspect of the T12 vertebral body. This measures 3.2 cm in size. No extension of tumor into the central spinal canal is seen. This appears to correspond to the area of increased activity seen in patient's bone scan. No additional metastasis is seen involving the thoracic vertebrae. Degenerative signal changes are seen involving all of the disks of the thoracic spine. Degenerative signal changes are seen within the marrow surrounding these discs. No area of abnormal signal intensity is seen involving the thoracic spinal cord. A right upper lobe masslike opacity is seen consistent with the patient's history of lung cancer. An enlarged right paratracheal lymph node is seen which measures at least 6.5 cm in size. Degenerative changes are seen involving the thoracic disc spaces consisting of minimal to mild generalized disc bulges. These findings do not result in definite areas of significant central spinal canal or neural foraminal stenosis. IMPRESSION: A metastasis is seen involving the T12 vertebral body. No retropulsion of bone fragments into the central spinal canal is seen. No additional metastasis of the thoracic vertebrae is seen. Electronically signed by: Alfred Fortune MD (02/27/2020 12:05 PM) [place] [id number]
== END | disposition home or self-care (01) ==
LOC: MRI 10:09
PROVIDERS: ATTEND Radiology Radiation Oncology
DX: M47.894 Other spondylosis, thoracic region (principal); M43.8X3 Other specified deforming dorsopathies, cervicothoracic region; C34.11 Malignant neoplasm of upper lobe, right bronchus or lung; C79.51 Secondary malignant neoplasm of bone; Z85.118 Personal history of other malignant neoplasm of bronchus and lung
CPT/HCPCS: 72157; A9575

== ENCOUNTER 2020-02-29 14:10 | Emergency (ER) | payer MEDICAID ==
[~2020-02-29] VITALS: Ht 188 cm; Wt 66.0 kg
[~2020-02-29 14:10] MED LIST changes: -GADOTERATE 7.5 MMOL/15ML VIAL. IVP ONE; -LISI1TAB19 PO; +LISI1TAB37 PO; -ONDA4TAB7 PO; -OXYC5CAP PO; -PROM25TA10 PO
[2020-02-29] MEDS ORDERED: 0.9 % SOD CHL for STERILE FIELD 10 ML DISP.SYRIN. ONE (14:32)
[2020-02-29] MEDS ORDERED: IV NORMAL SALINE 1000ML BAG 1,000 ML IV ONE (15:00)
[2020-02-29] MEDS ORDERED: ONDANSETRON PF 4 MG/2 ML VIAL. IVP ONE ×3 (15:00→18:30)
[2020-02-29 15:06] LABS: BASO % 0 % (0-3); EOS % 0 % (0-3); HEMATOCRIT 25.1 % (39.0-53.0); HEMOGLOBIN 8.3 g/dL (13.0-17.5); LYMPH # 0.5 x10^3/uL (1.0-4.8); LYMPH % 5 % (24-48); MEAN CORPUSCULAR HEMOGLOBIN 28 pg (25-35); MEAN CORPUSCULAR HGB CONC 33 g/dL (31-37); MEAN CORPUSCULAR VOLUME 83 fL (79-100); MONO # 1.6 x10^3/uL (0.0-1.1); MONO % 17 % (0-9); NEUT # 7.5 x10^3/uL (1.8-7.7); NEUT % 78 % (31-73); PLATELET COUNT 352 x10^3/uL (140-400); RED BLOOD COUNT 3.03 x10^6/uL (4.30-5.70); RED CELL DISTRIBUTION WIDTH 23.4 % (11.5-14.5); WHITE BLOOD COUNT 9.7 x10^3/uL (4.0-11.0)
[2020-02-29 15:23] LABS: % BANDS 8 % (0-9); % LYMPHS 7 % (24-48); % METAS 1 % (0-0); % MONOS 12 % (0-10); % SEGS 72 % (35-66); ANISOCYTOSIS MOD; CALCIUM 9.2 mg/dL (8.5-10.1); GFR 94.2; PLT ESTIMATE ADEQUATE (ADEQUATE); POIKILOCYTOSIS SLIGHT; POTASSIUM 4.1 mmol/L (3.5-5.1)
[2020-02-29 15:29] LABS: ALBUMIN 2.1 g/dL (3.4-5.0); ALBUMIN/GLOBULIN RATIO 0.4 (1.0-1.7); TOTAL BILIRUBIN 0.2 mg/dL (0.2-1.0); TOTAL PROTEIN 7.1 g/dL (6.4-8.2)
[2020-02-29] MEDS ORDERED: IOHEXOL 240 MG/ML 50ML VIAL. PO ONE (16:00)
[2020-02-29] MEDS ORDERED: IOHEXOL 300 MG/ML 100ML VIAL. IV ONE (16:00)
[2020-02-29] MEDS ORDERED: MORPHINE SULFATE 10 MG/ML VIAL. IV ONE (16:30)
--- NOTE | 2020-02-29 17:10 | RAD ---
Study: CT abdomen/pelvis with intravenous contrast Indication: Abdominal pain. Comparison: 01/01/2020 Technique: Helical CT imaging performed of the abdomen and pelvis after the intravenous administration of 75 cc Omnipaque 300 contrast. Sagittal and coronal reformats were obtained. One or more of the following individualized dose reduction techniques were utilized for this examination: 1. Automated exposure control 2. Adjustment of the mA and/or kV according to patient size 3. Use of iterative reconstruction technique. Findings: Small volume pericardial effusion not significantly different from the comparison. Plaque-like soft tissue density at the posterior right lower lung abutting the pleura and diaphragm was present previously and is deep to surgical changes. A similar but smaller finding more medially at the right lower lung is new from the prior such as on image 11 series 2. Ill-defined infiltrates at the medial aspect of the right lower lobe and right middle lobe are new from the prior. Enlargement of a mass within the epiphrenic fat at the level of the cardiac apex, image 19 series 2, now measuring up to 3.8 cm in maximum dimension compared to 2.3 cm. Unchanged calcifications within the right hepatic lobe with overlying tenting of the liver margin. No newly seen hepatic abnormality. No CT evidence for acute cholecystitis. No newly seen abnormality of the pancreas. Splenic granulomas. The spleen is within normal limits for size. Ongoing enlargement of a right adrenal gland mass now measuring up to 3.1 cm compared to 2.2 cm. Enlargement of a left adrenal gland mass measuring up to 5 cm compared to 3.6 cm. Unremarkable renal parenchyma. The renal pelvis and ureters are slightly more prominent from the prior but becomes smaller in caliber approaching the bladder and there is no obstructing mass or stone. Within normal limits urinary bladder. Unchanged prostate. Colonic diverticulosis. No findings to suggest diverticulitis. Mild colonic wall thickening at a several locations but without a discrete mass or pericolonic inflammation may be physiologic. No inflammatory changes along the expected course of the appendix. No small bowel obstruction. Some segments of small bowel are mildly thick walled. Luminal soft tissue irregularity within a small bowel segment at the lower central abdomen, image 55 series 2, but this is not definitively a mass. No discrete abnormality of the stomach. Scattered calcified and noncalcified atheromatous plaque throughout the aorta and iliofemoral systems. Mild ectasia at the distal abdominal aorta is unchanged, image 40 series 2. The central portal veins are patent. The adequately assess portion of the superior mesenteric vein is patent. Metastatic mass within the central upper mesentery measures up to 3.5 cm and is indistinguishable from a short segment of small bowel such as seen on image 37 series 2. Retroperitoneal metastatic deposit lateral to the mid right kidney, image 37 series 2 measuring up to 3.8 cm. Metastatic implant partially embedded in the left quadratus lumborum muscle, image 50 series 2, measures up to 3.7 cm. Destructive osseous lesion at the left ischial tuberosity, image 93 series 2, that has increased in size and there is a greater extent of cortical erosion and soft tissue extension of tumor that expands the obturator internus muscle. Lytic metastatic focus within the left iliac bone has increased in size and there is also a larger extent of soft tissue extension of tumor expanding the iliacus. Sclerosis surrounding a lytic defect within the T11 vertebral body is redemonstrated. The lytic component is slightly larger. No change in mild vertebral body height loss. Impression: 1. Worsening of metastatic disease since the 01/01/2020. This includes enlargement of metastatic implants within the epiphrenic fat, right lateral retroperitoneum adjacent to the inferior tip of the liver, within the upper central mesentery, and within the left retroperitoneum invading the quadratus lumborum muscle. Enlargement of destructive lytic lesions within the left ischial tuberosity and left iliac wing which exhibit more extensive soft tissue extension of tumor into the obturator internus and iliacus muscles, respectively. There has also been enlargement of adrenal gland metastases. A newly seen pleural based plaque-like soft tissue focus at the medial right lower lobe is new from the prior. Treatment-related change or a pleural metastasis are both considerations. 2. No change in mild wedging of the T11 vertebral body. There is again a lytic focus surrounded by sclerosis within this vertebral body that communicates with the superior endplate which could represent a treated metastasis with a superimposed enlarging Schmorl's node though a slightly enlarging active metastatic focus is difficult to exclude. Ongoing attention on follow-up. 3. Mild colonic wall thickening at several locations but without definitive ancillary findings to suggest a mild infectious or inflammatory colitis unless there are symptoms that would suggest as such. No bowel obstruction. 4. Mild short segment small bowel wall thickening and mild soft tissue luminal irregularity within a segment of small bowel at the central lower abdomen but metastatic disease to account for these findings would be unusual. There is no small bowel obstruction and orally administered contrast passes normally into the colon. Electronically signed by: OCTAVIANO LEUNG MD (02/29/2020 5:08 PM) [id number]
[2020-02-29] MEDS ORDERED: HYDROmorphone 2 MG/ML VIAL IV ONE (17:30)
[2020-02-29] MEDS ORDERED: OXYC5CAP PO (17:42)
[2020-02-29] MEDS ORDERED: PROM25TA10 PO (17:42)
[2020-02-29] MEDS ORDERED: ONDA4TAB7 PO (17:42)
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
[2020-02-29 17:45] VITALS: BP 135/73
[2020-02-29] MEDS ORDERED: HEPARIN PF 500 UNIT/5 ML DISP.SYRIN. IVP ONE ×2 (18:27→18:30)
[2020-03-21] MEDS ORDERED: FENT1PAT93 TP (13:35)
[2020-04-25] MEDS ORDERED: ZOLP5TAB PO (12:26)
[2020-04-29] MEDS ORDERED: LEVO500T59 PO (19:29)
== END 2020-02-29 18:35 | disposition home or self-care (01) ==
LOC: ER 14:37
DX: K52.9 Noninfective gastroenteritis and colitis, unspecified (principal); E86.0 Dehydration; G89.3 Neoplasm related pain (acute) (chronic); E03.9 Hypothyroidism, unspecified; I11.0 Hypertensive heart disease with heart failure; I50.9 Heart failure, unspecified; Z87.891 Personal history of nicotine dependence; Z88.0 Allergy status to penicillin
CPT/HCPCS: 36415; 74177; 80053; 83690; 85007; 85025; 96374; 96375; 96376; 99285; J1170; J2270; J2405; J7030; Q9966; Q9967

== ENCOUNTER 2020-03-19 10:45 | Inpatient (IN) | payer MEDICAID ==
[~2020-03-19] VITALS: Ht 193 cm; Wt 81.3 kg
[~2020-03-19 10:45] MED LIST changes: +LISI1TAB19 PO; -LISI1TAB37 PO; +ONDA4TAB7 PO; +OXYC5CAP PO; +PROM25TA10 PO
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
[2020-03-19] MEDS ORDERED: ONDANSETRON PF 4 MG/2 ML VIAL. IVP ONE (11:30)
[2020-03-19] MEDS ORDERED: IV NORMAL SALINE 1000ML BAG 1,000 ML IV ONE (11:30)
[2020-03-19] MEDS ORDERED: fentaNYL PF VIAL 100 MCG/2 ML VIAL IVP ONE (11:30)
[2020-03-19 11:33] LABS: BASO % 0 % (0-3); EOS % 1 % (0-3); HEMATOCRIT 24.3 % (39.0-53.0); HEMOGLOBIN 8.4 g/dL (13.0-17.5); LYMPH # 0.2 x10^3/uL (1.0-4.8); LYMPH % 4 % (24-48); MEAN CORPUSCULAR HEMOGLOBIN 29 pg (25-35); MEAN CORPUSCULAR HGB CONC 35 g/dL (31-37); MEAN CORPUSCULAR VOLUME 83 fL (79-100); MONO # 0.8 x10^3/uL (0.0-1.1); MONO % 14 % (0-9); NEUT # 4.3 x10^3/uL (1.8-7.7); NEUT % 81 % (31-73); PLATELET COUNT 263 x10^3/uL (140-400); RED BLOOD COUNT 2.93 x10^6/uL (4.30-5.70); RED CELL DISTRIBUTION WIDTH 23.9 % (11.5-14.5); WHITE BLOOD COUNT 5.3 x10^3/uL (4.0-11.0)
[2020-03-19 11:44] LABS: PROTHROMBIN TIME PATIENT 15.6 SEC (11.7-14.0)
[2020-03-19 11:51] LABS: CALCIUM 9.1 mg/dL (8.5-10.1); CREATININE 0.7 mg/dL (0.7-1.3); GFR 142.2
[2020-03-19 11:56] LABS: ALBUMIN 2.1 g/dL (3.4-5.0); ALBUMIN/GLOBULIN RATIO 0.4 (1.0-1.7); MAGNESIUM 1.6 mg/dL (1.8-2.4); TOTAL BILIRUBIN 0.4 mg/dL (0.2-1.0)
[2020-03-19] MEDS ORDERED: MAGNESIUM SULFATE 2GM 50 ML IV ONE (12:30)
[2020-03-19 13:08] LABS: % BASOS 2 % (0-3); % LYMPHS 7 % (24-48); % METAS 2 % (0-0); % MONOS 11 % (0-10); % SEGS 54 % (35-66)
[2020-03-19 13:10] LABS: % BANDS 24 % (0-9)
[2020-03-19 13:11] LABS: ANISOCYTOSIS MOD; PLT ESTIMATE ADEQUATE (ADEQUATE); POLYCHROMASIA OCCASIONAL
--- NOTE | 2020-03-19 13:11 | RAD ---
Examination: ACUTE ABDOMEN SERIES History: Reason: Abdominal pain, nausea, vomiting / Spl. Instructions: / History: Comparison/Correlation: 01/01/2020 CT chest abdomen and pelvis, CT abdomen and pelvis with contrast 02/29/2020 Findings: Portable upright frontal view of chest was obtained. Supine and upright views of the abdomen were obtained. Right internal jugular infusion port catheter is present. Right apical opacity and superior mediastinal widening again seen. Patchy infiltrate of right apical region is somewhat more evident upon correlation with previous chest CT. Nodule involving the right upper lung field is present similar for correlation with prior chest CT exam. No new left lung infiltrate. Old left fifth rib fracture is present. Bowel gas pattern is unremarkable. There is no obstruction or extraluminal gas. Moderate quantity of silicone is present. No suspicious abdominal calcifications. Impression: Increased right apical infiltrate is noted since prior CT exam of 08/02/2020. Consider follow-up to assess resolution. No bowel obstruction. Electronically signed by: Rajan Alves MD (03/19/2020 1:09 PM) [facility]
[2020-03-19] MEDS: IV NORMAL SALINE 1000ML BAG 1,000 ML IV SCH ×3 (14:12→23:08)
[2020-03-19] MEDS ORDERED: ACETAMINOPHEN 325 MG TABLET. PO PRN (14:15)
[2020-03-19] MEDS ORDERED: guaiFENesin ORAL 200 MG/10 ML LIQUID. PO PRN (14:15)
[2020-03-19] MEDS ORDERED: DOCUSATE SODIUM 100 MG CAPSULE. PO PRN (14:15)
[2020-03-19] MEDS ORDERED: diphenhydrAMINE 50 MG/ML VIAL IVP PRN (14:15)
[2020-03-19] MEDS ORDERED: ALBUTEROL SULFATE 2.5 MG/3 ML NEBU. NEB PRN (14:15)
[2020-03-19] MEDS ORDERED: ONDANSETRON PF 4 MG/2 ML VIAL. IV PRN ×2 (14:15)
[2020-03-19] MEDS ORDERED: LORazepam 0.5 MG TABLET PO PRN ×2 (14:15)
[2020-03-19] MEDS ORDERED: PROMETHAZINE 12.5 MG TABLET. PO PRN (14:45)
--- NOTE | 2020-03-19 14:53 | PDOC1 ---
History and Physical Date of Admission Date of Admission 03/19/2020 Identification/Chief Complaint Chief Complaint I feel weak Source Source: Chart review, Patient History of Present Illness History of Present Illness Patient is a 54-year-old gentleman with past medical history of metastatic lung cancer who is undergoing chemo and radiation with his last treatment at with chemotherapy approximately 2 weeks ago. Patient was recently admitted to our institution for a Kopit rule out and fortunately enough the patient did not present coronavirus infection. The patient has been quite weak for the last couple weeks and for the last 3 days the patient has been unable to eat nor drink. The patient has presented emesis over the last 48 hours with no hematemesis but he says it is yellow material that has subsequently become clear this morning. He has had very little oral intake and due to the progressive nature of his symptoms dehydration and overall weakness patient consulted today with the emergency department. Recent CAT scan of his abdomen reveals the following results: 1. Worsening of metastatic disease since the 01/01/2020. This includes enlargement of metastatic implants within the epiphrenic fat, right lateral retroperitoneum adjacent to the inferior tip of the liver, within the upper central mesentery, and within the left retroperitoneum invading the quadratus lumborum muscle. Enlargement of destructive lytic lesions within the left ischial tuberosity and left iliac wing which exhibit more extensive soft tissue extension of tumor into the obturator internus and iliacus muscles, respectively. There has also been enlargement of adrenal gland metastases. A newly seen pleural based plaque-like soft tissue focus at the medial right lower lobe is new from the prior. Treatment-related change or a pleural metastasis are both considerations. 2. No change in mild wedging of the T11 vertebral body. There is again a lytic focus surrounded by sclerosis within this vertebral body that communicates with the superior endplate which could represent a treated metastasis with a superimposed enlarging Schmorl's node though a slightly enlarging active metastatic focus is difficult to exclude. Ongoing attention on follow-up. 3. Mild colonic wall thickening at several locations but without definitive ancillary findings to suggest a mild infectious or inflammatory colitis unless there are symptoms that would suggest as such. No bowel obstruction. 4. Mild short segment small bowel wall thickening and mild soft tissue luminal irregularity within a segment of small bowel at the central lower abdomen but metastatic disease to account for these findings would be unusual. There is no small bowel obstruction and orally administered contrast passes normally into the colon. The patient seems to be quite cognizant about his condition and he relates to me that about 2 weeks ago he presented similar symptoms and did not want to be admitted at that time. Today is overall condition seems to have deteriorated to the point that he is requesting admission due to his progressive weakness. As far as pain medications go the patient is on a combination of morphine and other narcotics in order to keep him from suffering. He has a chronic back pain which as evidence on his last CAT scan seems to be a focus of metastatic disease at the level of T11. There are no neurological deficits reported at the present time no claudication no loss of bowel or urine incontinence no cauda equina symptoms have been reported either. Reassurance has been provided and the plan of care explained in detail Past Medical History Cardiovascular: HTN Pulmonary: No pertinent hx GI: No pertinent hx Heme/Onc: No pertinent hx Hepatobiliary: No pertinent hx Psych: No pertinent hx Rheumatologic: No pertinent hx Infectious disease: No pertinent hx Renal/: No pertinent hx Endocrine: Hypothyroidism Past Surgical History Past Surgical History: Other Family History Family History: Cancer, Hypertension Social History ALCOHOL: rare Drugs: None Current Medications Current Medications Current Medications Medications (Trade) Dose Ordered Sig/Shanon Start Time Stop Time Status Last Admin Dose Admin Acetaminophen (Tylenol) 650 mg PRN Q4HRS PRN 03/19/20 14:15 Albuterol Sulfate (Ventolin Neb Soln) 2.5 mg PRN Q4HRS PRN 03/19/20 14:15 Apixaban (Eliquis) 5 mg BID 03/19/20 21:00 Citalopram Hydrobromide (CeleXA) 20 mg DAILY 03/20/20 09:00 Diphenhydramine HCl (Benadryl) 25 mg PRN Q4HRS PRN 03/19/20 14:15 Docusate Sodium (Colace) 100 mg PRN BID PRN 03/19/20 14:15 Fentanyl (Duragesic 50mcg/ Hr Patch) 1 patch Q3DAYS 03/22/20 09:00 UNV Fentanyl Citrate (Fentanyl 2ml Vial) 50 mcg 1X ONCE 03/19/20 11:30 03/19/20 11:31 DC 03/19/20 11:34 50 MCG Folic Acid (Folic Acid) 1 mg DAILY 03/20/20 09:00 Guaifenesin (Robitussin) 200 mg PRN Q4HRS PRN 03/19/20 14:15 Levothyroxine Sodium (Synthroid) 100 mcg DAILY07 03/20/20 07:00 UNV Lorazepam (Ativan) 0.5 mg PRN Q8HRS PRN 03/19/20 14:15 UNV Magnesium Oxide (Magnesium Oxide) 400 mg BID 03/19/20 21:00 Magnesium Sulfate 50 ml @ 25 mls/hr 1X ONCE 03/19/20 12:30 03/19/20 14:29 DC 03/19/20 13:08 25 MLS/HR Morphine Sulfate (Morphine Sulfate) 4 mg PRN Q2HR PRN 03/19/20 14:15 03/20/20 14:14 UNV Non-Formulary Medication (Lisinopril/ Hydrochlorothiazide (Lisinopril-Hctz 20-12.5 Mg Tab)) 1 tab DAILY 03/20/20 09:00 UNV Non-Formulary Medication (Ondansetron Hcl (Zofran)) 1 tab PRN Q6-8HRS 03/19/20 14:15 UNV Non-Formulary Medication (Oxycodone Hcl ) 5 mg PRN Q6HRS PRN 03/19/20 14:15 UNV Non-Formulary Medication (Pnv No.122/Iron/ Folic Acid ( Multi Tablet)) 1 tab DAILY 03/20/20 09:00 UNV Non-Formulary Medication (Prochlorperazine Maleate (Compazine)) 1 tab Q6HRS 03/19/20 18:00 UNV Non-Formulary Medication (Zolpidem Tartrate ) 10 mg PRN QHS PRN 03/19/20 14:15 UNV Ondansetron HCl (Zofran) 4 mg PRN Q8HRS PRN 03/19/20 14:15 03/20/20 14:14 Oxycodone/ Acetaminophen (Percocet 5/325) 1 tab PRN Q6HRS PRN 03/19/20 14:15 Promethazine HCl (Phenergan) 25 mg PRN Q6HRS PRN 03/19/20 14:45 Sodium Chloride 1,000 ml @ 100 mls/hr Q10H 03/19/20 14:12 03/20/20 14:11 Zolpidem Tartrate (Ambien) 5 mg PRN QHS PRN 03/19/20 14:15 Allergies Allergies Allergies Coded Allergies Type Severity Reaction Last Updated Verified Penicillins Allergy Severe Swelling 11/07/19 Yes ROS Review of System CONSTITUTIONAL: No fever or chills positive for weakness EYES: No recent changes SKIN: No rash or itching CARDIOVASCULAR: No chest pain, syncope, palpitations, or edema RESPIRATORY: No SOB or cough GASTROINTESTINAL: No nausea, vomiting or abdominal pain NEUROLOGICAL: No headaches or hemiparesis ENDOCRINE: No cold or heat intolerance GENITOURINARY: No urgency or frequency of urination MUSCULOSKELETAL: No back pain or joint pain LYMPHATICS: No enlarged lymph nodes PSYCHIATRIC: No anxiety or depression Physical Exam Physical Exam GEN.: No apparent distress. Alert and oriented. Chronically ill-appearing thin looking HEENT: Head is normocephalic, atraumatic NECK: Supple. LUNGS: Clear to auscultation. HEART: RRR, S1, S2 present. Peripheral pulses intact ABDOMEN: Soft, nontender. Positive bowel sounds. EXTREMITIES: Without any cyanosis. NEUROLOGIC: Normal speech, normal tone PSYCHIATRIC: Normal affect, normal mood. SKIN: No ulcerations Vitals Vitals Vital Signs Date Time Temp Pulse Resp B/P (MAP) Pulse Ox O2 Delivery O2 Flow Rate FiO2 03/19/20 11:45 100 125/82 (96) 100 Room Air 03/19/20 11:34 20 03/19/20 11:00 97.5 97.5 Labs Labs Laboratory Tests Test 03/19/20 11:25 White Blood Count 5.3 x10^3/uL (4.0-11.0) Red Blood Count 2.93 x10^6/uL (4.30-5.70) Hemoglobin 8.4 g/dL (13.0-17.5) Hematocrit 24.3 % (39.0-53.0) Mean Corpuscular Volume 83 fL (79-100) Mean Corpuscular Hemoglobin 29 pg (25-35) Mean Corpuscular Hemoglobin Concent 35 g/dL (31-37) Red Cell Distribution Width 23.9 % (11.5-14.5) Platelet Count 263 x10^3/uL (140-400) Neutrophils (%) (Auto) 81 % (31-73) Lymphocytes (%) (Auto) 4 % (24-48) Monocytes (%) (Auto) 14 % (0-9) Eosinophils (%) (Auto) 1 % (0-3) Basophils (%) (Auto) 0 % (0-3) Neutrophils # (Auto) 4.3 x10^3/uL (1.8-7.7) Lymphocytes # (Auto) 0.2 x10^3/uL (1.0-4.8) Monocytes # (Auto) 0.8 x10^3/uL (0.0-1.1) Eosinophils # (Auto) 0.0 x10^3/uL (0.0-0.7) Basophils # (Auto) 0.0 x10^3/uL (0.0-0.2) Segmented Neutrophils % 54 % (35-66) Band Neutrophils % 24 % (0-9) Lymphocytes % 7 % (24-48) Monocytes % 11 % (0-10) Basophils % 2 % (0-3) Metamyelocytes % 2 % (0-0) Platelet Estimate Adequate (ADEQUATE) Polychromasia Occasional Basophilic Stippling Present Anisocytosis Mod Prothrombin Time 15.6 SEC (11.7-14.0) Prothromb Time International Ratio 1.3 (0.8-1.1) Activated Partial Thromboplast Time 44 SEC (24-38) Sodium Level 130 mmol/L (136-145) Potassium Level 4.0 mmol/L (3.5-5.1) Chloride Level 95 mmol/L (98-107) Carbon Dioxide Level 27 mmol/L (21-32) Anion Gap 8 (6-14) Blood Urea Nitrogen 12 mg/dL (8-26) Creatinine 0.7 mg/dL (0.7-1.3) Estimated GFR (Cockcroft-Gault) 142.2 BUN/Creatinine Ratio 17 (6-20) Glucose Level 118 mg/dL (70-99) Calcium Level 9.1 mg/dL (8.5-10.1) Magnesium Level 1.6 mg/dL (1.8-2.4) Total Bilirubin 0.4 mg/dL (0.2-1.0) Aspartate Amino Transf (AST/SGOT) 29 U/L (15-37) Alanine Aminotransferase (ALT/SGPT) 25 U/L (16-63) Alkaline Phosphatase 235 U/L (46-116) Total Protein 7.0 g/dL (6.4-8.2) Albumin 2.1 g/dL (3.4-5.0) Albumin/Globulin Ratio 0.4 (1.0-1.7) Lipase 35 U/L (73-393) Laboratory Tests Test 03/19/20 11:25 White Blood Count 5.3 x10^3/uL (4.0-11.0) Red Blood Count 2.93 x10^6/uL (4.30-5.70) Hemoglobin 8.4 g/dL (13.0-17.5) Hematocrit 24.3 % (39.0-53.0) Mean Corpuscular Volume 83 fL (79-100) Mean Corpuscular Hemoglobin 29 pg (25-35) Mean Corpuscular Hemoglobin Concent 35 g/dL (31-37) Red Cell Distribution Width 23.9 % (11.5-14.5) Platelet Count 263 x10^3/uL (140-400) Neutrophils (%) (Auto) 81 % (31-73) Lymphocytes (%) (Auto) 4 % (24-48) Monocytes (%) (Auto) 14 % (0-9) Eosinophils (%) (Auto) 1 % (0-3) Basophils (%) (Auto) 0 % (0-3) Neutrophils # (Auto) 4.3 x10^3/uL (1.8-7.7) Lymphocytes # (Auto) 0.2 x10^3/uL (1.0-4.8) Monocytes # (Auto) 0.8 x10^3/uL (0.0-1.1) Eosinophils # (Auto) 0.0 x10^3/uL (0.0-0.7) Basophils # (Auto) 0.0 x10^3/uL (0.0-0.2) Segmented Neutrophils % 54 % (35-66) Band Neutrophils % 24 % (0-9) Lymphocytes % 7 % (24-48) Monocytes % 11 % (0-10) Basophils % 2 % (0-3) Metamyelocytes % 2 % (0-0) Platelet Estimate Adequate (ADEQUATE) Polychromasia Occasional Basophilic Stippling Present Anisocytosis Mod Prothrombin Time 15.6 SEC (11.7-14.0) Prothromb Time International Ratio 1.3 (0.8-1.1) Activated Partial Thromboplast Time 44 SEC (24-38) Sodium Level 130 mmol/L (136-145) Potassium Level 4.0 mmol/L (3.5-5.1) Chloride Level 95 mmol/L (98-107) Carbon Dioxide Level 27 mmol/L (21-32) Anion Gap 8 (6-14) Blood Urea Nitrogen 12 mg/dL (8-26) Creatinine 0.7 mg/dL (0.7-1.3) Estimated GFR (Cockcroft-Gault) 142.2 BUN/Creatinine Ratio 17 (6-20) Glucose Level 118 mg/dL (70-99) Calcium Level 9.1 mg/dL (8.5-10.1) Magnesium Level 1.6 mg/dL (1.8-2.4) Total Bilirubin 0.4 mg/dL (0.2-1.0) Aspartate Amino Transf (AST/SGOT) 29 U/L (15-37) Alanine Aminotransferase (ALT/SGPT) 25 U/L (16-63) Alkaline Phosphatase 235 U/L (46-116) Total Protein 7.0 g/dL (6.4-8.2) Albumin 2.1 g/dL (3.4-5.0) Albumin/Globulin Ratio 0.4 (1.0-1.7) Lipase 35 U/L (73-393) VTE Prophylaxis Ordered VTE Prophylaxis Devices: Yes VTE Pharmacological Prophylaxi: Yes Assessment/Plan Assessment/Plan Acute dehydration secondary to poor oral intake Intractable nausea and vomiting Bandemia which may be related to his underlying treatment plan which unknown at the present time if he has gotten G-CSF agents Leukocytosis can be secondary to reactive nature given his multiple emetic episodes Hypo-natremia secondary to low effective circulatory volume Hypomagnesemia Metastatic lung cancer undergoing chemo and radiation therapy Chronic pain syndrome secondary to underlying malignancy T11 metastatic disease without alarming signs Plan IV fluid resuscitation Pain management Symptoms control Reassess in the a.m. Labs in the a.m. Further recommendation based on the clinical Resume home medication DVT prophylaxis with heparin Justicifation of Admission Dx: Justifications for Admission: Justification of Admission Dx: Yes RICARDO URBANO MD Mar 19, 2020 14:53
[2020-03-19] MEDS ORDERED: ONDANSETRON ODT 4 MG TAB.RAPDIS. PO PRN (15:00)
[2020-03-19] MEDS ORDERED: ZOLPIDEM 5 MG TABLET. PO PRN (15:00)
[2020-03-19] MEDS: MORPHINE SULFATE 4 MG/ML VIAL. IV PRN ×3 (16:44→21:04)
[2020-03-19] MEDS: PROCHLORPERAZINE 5 MG TABLET. PO SCH (18:00)
[2020-03-19 19:00] VITALS: BP 117/70
--- NOTE | 2020-03-19 19:00 | NUR ---
Pt. arrived from ER to unit at 1900 by wheelchair. Pt. complains of pain at this time. call light is within reach with bed in lowest position. was reminded about visiting hours. Will continue to monitor.
[2020-03-19] MEDS: MAGNESIUM OXIDE 400 MG TABLET PO SCH (20:24)
[2020-03-19] MEDS: ZOLPIDEM 5 MG TABLET. PO PRN (20:25)
[2020-03-19] MEDS: oxyCODONE/APAP 5/325 1 TAB TABLET PO PRN (20:25)
[2020-03-19] MEDS: APIXABAN 5 MG TABLET. PO SCH (20:25)
[2020-03-19] MEDS: oxyCODONE IR 5 MG TABLET PO PRN (20:25)
[2020-03-19 20:46] LABS: BILIRUBIN,URINE NEGATIVE (NEG); CLARITY,URINE CLEAR; COLOR,URINE YELLOW; NITRITE,URINE NEGATIVE (NEG); PH,URINE 6.5 (<5.0-8.0); PROTEIN,URINE NEGATIVE (NEG-TRACE); UROBILINOGEN,URINE 0.2 mg/dL (0.2 mg/dL)
[2020-03-19 20:51] LABS: BACTERIA,URINE 0 /HPF (0-FEW); RBC,URINE 0 /HPF (0-2); WBC,URINE RARE /HPF (0-4)
[2020-03-19 23:00] VITALS: BP 122/72
[2020-03-20] MEDS: IV NORMAL SALINE 1000ML BAG 1,000 ML IV SCH ×3 (00:12→10:12)
--- NOTE | 2020-03-20 01:14 | NUR ---
pt.'s IVF changed to 100ml/hour per emar. Normal saline from 1400 and Compazine from 1800 were not given due to patient being in ER at that time. Addendum: 03/20/20 at 0116 by MICAELA KNOWLES RN medications were not given from 03/19/20
[2020-03-20] MEDS: MORPHINE SULFATE 4 MG/ML VIAL. IV PRN (01:23)
[2020-03-20] MEDS: PROCHLORPERAZINE 5 MG TABLET. PO SCH ×4 (01:23→18:21)
[2020-03-20 03:00] VITALS: BP 119/63
[2020-03-20] MEDS: oxyCODONE/APAP 5/325 1 TAB TABLET PO PRN ×4 (03:46→22:40)
[2020-03-20] MEDS: LEVOTHYROXINE 100 MCG TABLET PO SCH (06:16)
[2020-03-20] MEDS: oxyCODONE IR 5 MG TABLET PO PRN ×3 (06:28→21:20)
[2020-03-20 07:00] VITALS: BP 123/73
[2020-03-20] MEDS: PRENATAL MULTIVITAMIN TABLET. PO SCH (08:54)
[2020-03-20] MEDS: CITALOPRAM 20 MG TABLET. PO SCH (08:54)
[2020-03-20] MEDS: MAGNESIUM OXIDE 400 MG TABLET PO SCH ×2 (08:54→21:19)
[2020-03-20] MEDS: APIXABAN 5 MG TABLET. PO SCH ×2 (08:54→21:20)
[2020-03-20] MEDS: LISINOPRIL 20 MG TABLET PO SCH (08:54)
[2020-03-20] MEDS: hydroCHLOROthiazide 12.5 MG CAPSULE PO SCH (08:54)
[2020-03-20] MEDS: FOLIC ACID 1 MG TABLET. PO SCH (08:54)
[2020-03-20 11:00] VITALS: BP 129/76
--- NOTE | 2020-03-20 11:03 | NUR ---
SW following. Discussed with RN, pt from home with spouse, room air. Pt has stage 4 lung cancer with mets to abdominal cavity. Pt already has chemo and radiation. Poss PT/OT per RN. SW will continue to follow.
[2020-03-20 12:44] LABS: BASO % 0 % (0-3); EOS % 1 % (0-3); HEMOGLOBIN 7.8 g/dL (13.0-17.5); LYMPH # 0.2 x10^3/uL (1.0-4.8); LYMPH % 6 % (24-48); MEAN CORPUSCULAR HEMOGLOBIN 28 pg (25-35); MEAN CORPUSCULAR HGB CONC 34 g/dL (31-37); MEAN CORPUSCULAR VOLUME 84 fL (79-100); MONO % 23 % (0-9); NEUT # 3.1 x10^3/uL (1.8-7.7); NEUT % 70 % (31-73); PLATELET COUNT 256 x10^3/uL (140-400); RED BLOOD COUNT 2.75 x10^6/uL (4.30-5.70); RED CELL DISTRIBUTION WIDTH 23.8 % (11.5-14.5); WHITE BLOOD COUNT 4.4 x10^3/uL (4.0-11.0)
[2020-03-20 12:58] LABS: CREATININE 0.8 mg/dL (0.7-1.3); GFR 121.9
--- NOTE | 2020-03-20 14:38 | PDOC ---
PROGRESS NOTES Chief Complaint Chief Complaint Acute dehydration secondary to poor oral intake Intractable nausea and vomiting Bandemia which may be related to his underlying treatment plan which unknown at the present time if he has gotten G-CSF agents Leukocytosis can be secondary to reactive nature given his multiple emetic episodes Hypo-natremia secondary to low effective circulatory volume Hypomagnesemia Metastatic lung cancer undergoing chemo and radiation therapy Chronic pain syndrome secondary to underlying malignancy T11 metastatic disease without alarming signs Plan IV fluid resuscitation Pain management Symptoms control Reassess in the a.m. Further recommendation based on the clinical Resume home medication DVT prophylaxis with heparin History of Present Illness History of Present Illness Patient continues to exhibit severe discomfort over the abdominal area and his back. Most likely related to his underlying malignancy and metastatic disease. Reassurance has been provided, laboratory data has been noted will need to continue with pain management and symptom control and provide IV fluid resuscitation Vitals Vitals Vital Signs Date Time Temp Pulse Resp B/P (MAP) Pulse Ox O2 Delivery O2 Flow Rate FiO2 03/20/20 11:00 97.8 98 18 129/76 (93) 98 Room Air 97.8 Physical Exam Physical Exam Gen.: Chronically ill-appearing in mild distress Head: Normal shape atraumatic Eyes: Pupils equal reactive to light and accommodation, normal conjunctivae and lids Ears: Normal shape Nose: Normal shape no trauma Mouth: No exudates of the back of throat no thrush no lesions Neck: Supple no JVD no carotid bruit or lymphadenopathy no thyromegaly Chest: Lungs clear to auscultation with good inspiratory effort no crackles rales or rhonchi Cardiovascular: S1-S2 regular rhythm no murmurs gallops or rubs Abdomen: Bowel sounds present tender to deep palpation but no rebound or peritoneal signs evident no hepatosplenomegaly appreciated sign Extremities: No clubbing no cyanosis no edema peripheral pulses palpated bilaterally Neurological: Alert awake oriented in person time place and situation, cranial nerves II through XII intact, no motor or sensory deficits appreciated Psych: Appropriate mood, cooperative Lungs: Clear Labs LABS Laboratory Tests Test 03/19/20 18:25 03/20/20 12:23 03/20/20 12:30 Urine Collection Type Unknown Urine Color Yellow Urine Clarity Clear Urine pH 6.5 (<5.0-8.0) Urine Specific [place] 1.015 (1.000-1.030) Urine Protein Negative mg/dL (NEG-TRACE) Urine Glucose (UA) Negative mg/dL (NEG) Urine Ketones (Stick) Negative mg/dL (NEG) Urine Blood Negative (NEG) Urine Nitrite Negative (NEG) Urine Bilirubin Negative (NEG) Urine Urobilinogen Dipstick 0.2 mg/dL (0.2 mg/dL) Urine Leukocyte Esterase Negative (NEG) Urine RBC 0 /HPF (0-2) Urine WBC Rare /HPF (0-4) Urine Squamous Epithelial Cells None /LPF Urine Bacteria 0 /HPF (0-FEW) Urine Mucus Slight /LPF Sodium Level 130 mmol/L (136-145) Potassium Level 4.0 mmol/L (3.5-5.1) Chloride Level 94 mmol/L (98-107) Carbon Dioxide Level 27 mmol/L (21-32) Anion Gap 9 (6-14) Blood Urea Nitrogen 9 mg/dL (8-26) Creatinine 0.8 mg/dL (0.7-1.3) Estimated GFR (Cockcroft-Gault) 121.9 Glucose Level 128 mg/dL (70-99) Calcium Level 9.0 mg/dL (8.5-10.1) White Blood Count 4.4 x10^3/uL (4.0-11.0) Red Blood Count 2.75 x10^6/uL (4.30-5.70) Hemoglobin 7.8 g/dL (13.0-17.5) Hematocrit 23.0 % (39.0-53.0) Mean Corpuscular Volume 84 fL (79-100) Mean Corpuscular Hemoglobin 28 pg (25-35) Mean Corpuscular Hemoglobin Concent 34 g/dL (31-37) Red Cell Distribution Width 23.8 % (11.5-14.5) Platelet Count 256 x10^3/uL (140-400) Neutrophils (%) (Auto) 70 % (31-73) Lymphocytes (%) (Auto) 6 % (24-48) Monocytes (%) (Auto) 23 % (0-9) Eosinophils (%) (Auto) 1 % (0-3) Basophils (%) (Auto) 0 % (0-3) Neutrophils # (Auto) 3.1 x10^3/uL (1.8-7.7) Lymphocytes # (Auto) 0.2 x10^3/uL (1.0-4.8) Monocytes # (Auto) 1.0 x10^3/uL (0.0-1.1) Eosinophils # (Auto) 0.0 x10^3/uL (0.0-0.7) Basophils # (Auto) 0.0 x10^3/uL (0.0-0.2) Review of Systems Review of Systems Pertinent as per HPI otherwise 14 point review of system is negative Assessment and Plan Assessmemt and Plan Problems Medical Problems: (1) Abdominal pain Status: Acute (2) Dehydration Status: Acute (3) Metastatic primary lung cancer Status: Acute (4) Nausea & vomiting Status: Acute Comment Review of Relevant I have reviewed the following items ct (where applicable) has been applied. Labs Laboratory Tests Test 03/19/20 11:25 03/19/20 18:25 03/20/20 12:23 03/20/20 12:30 White Blood Count 5.3 x10^3/uL (4.0-11.0) 4.4 x10^3/uL (4.0-11.0) Red Blood Count 2.93 x10^6/uL (4.30-5.70) 2.75 x10^6/uL (4.30-5.70) Hemoglobin 8.4 g/dL (13.0-17.5) 7.8 g/dL (13.0-17.5) Hematocrit 24.3 % (39.0-53.0) 23.0 % (39.0-53.0) Mean Corpuscular Volume 83 fL (79-100) 84 fL (79-100) Mean Corpuscular Hemoglobin 29 pg (25-35) 28 pg (25-35) Mean Corpuscular Hemoglobin Concent 35 g/dL (31-37) 34 g/dL (31-37) Red Cell Distribution Width 23.9 % (11.5-14.5) 23.8 % (11.5-14.5) Platelet Count 263 x10^3/uL (140-400) 256 x10^3/uL (140-400) Neutrophils (%) (Auto) 81 % (31-73) 70 % (31-73) Lymphocytes (%) (Auto) 4 % (24-48) 6 % (24-48) Monocytes (%) (Auto) 14 % (0-9) 23 % (0-9) Eosinophils (%) (Auto) 1 % (0-3) 1 % (0-3) Basophils (%) (Auto) 0 % (0-3) 0 % (0-3) Neutrophils # (Auto) 4.3 x10^3/uL (1.8-7.7) 3.1 x10^3/uL (1.8-7.7) Lymphocytes # (Auto) 0.2 x10^3/uL (1.0-4.8) 0.2 x10^3/uL (1.0-4.8) Monocytes # (Auto) 0.8 x10^3/uL (0.0-1.1) 1.0 x10^3/uL (0.0-1.1) Eosinophils # (Auto) 0.0 x10^3/uL (0.0-0.7) 0.0 x10^3/uL (0.0-0.7) Basophils # (Auto) 0.0 x10^3/uL (0.0-0.2) 0.0 x10^3/uL (0.0-0.2) Segmented Neutrophils % 54 % (35-66) Band Neutrophils % 24 % (0-9) Lymphocytes % 7 % (24-48) Monocytes % 11 % (0-10) Basophils % 2 % (0-3) Metamyelocytes % 2 % (0-0) Platelet Estimate Adequate (ADEQUATE) Polychromasia Occasional Basophilic Stippling Present Anisocytosis Mod Prothrombin Time 15.6 SEC (11.7-14.0) Prothromb Time International Ratio 1.3 (0.8-1.1) Activated Partial Thromboplast Time 44 SEC (24-38) Sodium Level 130 mmol/L (136-145) 130 mmol/L (136-145) Potassium Level 4.0 mmol/L (3.5-5.1) 4.0 mmol/L (3.5-5.1) Chloride Level 95 mmol/L (98-107) 94 mmol/L (98-107) Carbon Dioxide Level 27 mmol/L (21-32) 27 mmol/L (21-32) Anion Gap 8 (6-14) 9 (6-14) Blood Urea Nitrogen 12 mg/dL (8-26) 9 mg/dL (8-26) Creatinine 0.7 mg/dL (0.7-1.3) 0.8 mg/dL (0.7-1.3) Estimated GFR (Cockcroft-Gault) 142.2 121.9 BUN/Creatinine Ratio 17 (6-20) Glucose Level 118 mg/dL (70-99) 128 mg/dL (70-99) Calcium Level 9.1 mg/dL (8.5-10.1) 9.0 mg/dL (8.5-10.1) Magnesium Level 1.6 mg/dL (1.8-2.4) Total Bilirubin 0.4 mg/dL (0.2-1.0) Aspartate Amino Transf (AST/SGOT) 29 U/L (15-37) Alanine Aminotransferase (ALT/SGPT) 25 U/L (16-63) Alkaline Phosphatase 235 U/L (46-116) Total Protein 7.0 g/dL (6.4-8.2) Albumin 2.1 g/dL (3.4-5.0) Albumin/Globulin Ratio 0.4 (1.0-1.7) Lipase 35 U/L (73-393) Urine Collection Type Unknown Urine Color Yellow Urine Clarity Clear Urine pH 6.5 (<5.0-8.0) Urine Specific [place] 1.015 (1.000-1.030) Urine Protein Negative mg/dL (NEG-TRACE) Urine Glucose (UA) Negative mg/dL (NEG) Urine Ketones (Stick) Negative mg/dL (NEG) Urine Blood Negative (NEG) Urine Nitrite Negative (NEG) Urine Bilirubin Negative (NEG) Urine Urobilinogen Dipstick 0.2 mg/dL (0.2 mg/dL) Urine Leukocyte Esterase Negative (NEG) Urine RBC 0 /HPF (0-2) Urine WBC Rare /HPF (0-4) Urine Squamous Epithelial Cells None /LPF Urine Bacteria 0 /HPF (0-FEW) Urine Mucus Slight /LPF Laboratory Tests Test 03/19/20 18:25 03/20/20 12:23 03/20/20 12:30 Urine Collection Type Unknown Urine Color Yellow Urine Clarity Clear Urine pH 6.5 (<5.0-8.0) Urine Specific [place] 1.015 (1.000-1.030) Urine Protein Negative mg/dL (NEG-TRACE) Urine Glucose (UA) Negative mg/dL (NEG) Urine Ketones (Stick) Negative mg/dL (NEG) Urine Blood Negative (NEG) Urine Nitrite Negative (NEG) Urine Bilirubin Negative (NEG) Urine Urobilinogen Dipstick 0.2 mg/dL (0.2 mg/dL) Urine Leukocyte Esterase Negative (NEG) Urine RBC 0 /HPF (0-2) Urine WBC Rare /HPF (0-4) Urine Squamous Epithelial Cells None /LPF Urine Bacteria 0 /HPF (0-FEW) Urine Mucus Slight /LPF Sodium Level 130 mmol/L (136-145) Potassium Level 4.0 mmol/L (3.5-5.1) Chloride Level 94 mmol/L (98-107) Carbon Dioxide Level 27 mmol/L (21-32) Anion Gap 9 (6-14) Blood Urea Nitrogen 9 mg/dL (8-26) Creatinine 0.8 mg/dL (0.7-1.3) Estimated GFR (Cockcroft-Gault) 121.9 Glucose Level 128 mg/dL (70-99) Calcium Level 9.0 mg/dL (8.5-10.1) White Blood Count 4.4 x10^3/uL (4.0-11.0) Red Blood Count 2.75 x10^6/uL (4.30-5.70) Hemoglobin 7.8 g/dL (13.0-17.5) Hematocrit 23.0 % (39.0-53.0) Mean Corpuscular Volume 84 fL (79-100) Mean Corpuscular Hemoglobin 28 pg (25-35) Mean Corpuscular Hemoglobin Concent 34 g/dL (31-37) Red Cell Distribution Width 23.8 % (11.5-14.5) Platelet Count 256 x10^3/uL (140-400) Neutrophils (%) (Auto) 70 % (31-73) Lymphocytes (%) (Auto) 6 % (24-48) Monocytes (%) (Auto) 23 % (0-9) Eosinophils (%) (Auto) 1 % (0-3) Basophils (%) (Auto) 0 % (0-3) Neutrophils # (Auto) 3.1 x10^3/uL (1.8-7.7) Lymphocytes # (Auto) 0.2 x10^3/uL (1.0-4.8) Monocytes # (Auto) 1.0 x10^3/uL (0.0-1.1) Eosinophils # (Auto) 0.0 x10^3/uL (0.0-0.7) Basophils # (Auto) 0.0 x10^3/uL (0.0-0.2) Medications Current Medications Sodium Chloride 1,000 ml @ 1,000 mls/hr 1X ONCE IV Last administered on 03/19/20at 11:25; Start 03/19/20 at 11:30; Stop 03/19/20 at 12:29; Status DC Ondansetron HCl (Zofran) 4 mg 1X ONCE IVP Last administered on 03/19/20at 11:33; Start 03/19/20 at 11:30; Stop 03/19/20 at 11:31; Status DC Fentanyl Citrate (Fentanyl 2ml Vial) 50 mcg 1X ONCE IVP Last administered on 03/19/20at 11:34; Start 03/19/20 at 11:30; Stop 03/19/20 at 11:31; Status DC Magnesium Sulfate 50 ml @ 25 mls/hr 1X ONCE IV Last administered on 03/19/20at 13:08; Start 03/19/20 at 12:30; Stop 03/19/20 at 14:29; Status DC Sodium Chloride 1,000 ml @ 50 mls/hr Q20H IV Last administered on 03/20/20at 06:15; Start 03/19/20 at 14:09 Ondansetron HCl (Zofran) 4 mg PRN Q4HRS PRN IV NAUSEA/VOMITING Last administered on 03/19/20at 18:40; Start 03/19/20 at 14:15 Zolpidem Tartrate (Ambien) 5 mg PRN QHS PRN PO INSOMNIA Last administered on 03/19/20at 20:25; Start 03/19/20 at 14:15 Acetaminophen (Tylenol) 650 mg PRN Q4HRS PRN PO TEMP OVER 100.4F OR MILD PAIN; Start 03/19/20 at 14:15 Diphenhydramine HCl (Benadryl) 25 mg PRN Q4HRS PRN IVP ITCHING; Start 03/19/20 at 14:15 Docusate Sodium (Colace) 100 mg PRN BID PRN PO HARD STOOLS Last administered on 03/20/20at 11:44; Start 03/19/20 at 14:15 Albuterol Sulfate (Ventolin Neb Soln) 2.5 mg PRN Q4HRS PRN NEB SHORTNESS OF BREATH; Start 03/19/20 at 14:15 Guaifenesin (Robitussin) 200 mg PRN Q4HRS PRN PO COUGH; Start 03/19/20 at 14:15 Lorazepam (Ativan) 0.5 mg PRN Q4HRS PRN PO ANXIETY / AGITATION; Start 03/19/20 at 14:15 Apixaban (Eliquis) 5 mg BID PO Last administered on 03/20/20at 08:54; Start 03/19/20 at 21:00 Citalopram Hydrobromide (CeleXA) 20 mg DAILY PO Last administered on 03/20/20at 08:54; Start 03/20/20 at 09:00 Fentanyl (Duragesic 50mcg/ Hr Patch) 1 patch Q3DAYS TD ; Start 03/22/20 at 09:00; Stop 03/19/20 at 14:56; Status DC Levothyroxine Sodium (Synthroid) 100 mcg DAILY06 PO Last administered on 03/20/20at 06:16; Start 03/20/20 at 06:00 Lorazepam (Ativan) 0.5 mg PRN Q8HRS PRN PO ANXIETY / AGITATION; Start 03/19/20 at 14:15; Stop 03/20/20 at 12:38; Status DC Oxycodone/ Acetaminophen (Percocet 5/325) 1 tab PRN Q6HRS PRN PO MODERATE TO SEVERE PAIN Last administered on 03/20/20at 09:53; Start 03/19/20 at 14:15 Folic Acid (Folic Acid) 1 mg DAILY PO Last administered on 03/20/20at 08:54; Start 03/20/20 at 09:00 Lisinopril (Prinivil) 20 mg DAILY PO Last administered on 03/20/20at 08:54; Start 03/20/20 at 09:00 Magnesium Oxide (Magnesium Oxide) 400 mg BID PO Last administered on 03/20/20at 08:54; Start 03/19/20 at 21:00 Ondansetron HCl (Zofran Odt) 4 mg PRN Q6HRS PRN PO NAUSEA/VOMITING; Start 03/19/20 at 15:00 Oxycodone HCl (Roxicodone) 5 mg PRN Q6HRS PRN PO MOD-SEVERE PAIN 2ND CHOICE Last administered on 03/20/20at 12:19; Start 03/19/20 at 15:00 Multivit/ Folic Acid/Iron (Multivitamin ) 1 tab DAILY PO Last administered on 03/20/20at 08:54; Start 03/20/20 at 09:00 Prochlorperazine Maleate (Compazine) 10 mg Q6HRS PO Last administered on 03/20/20at 11:45; Start 03/19/20 at 18:00 Promethazine HCl (Phenergan) 25 mg PRN Q6HRS PRN PO NAUSEA/VOMITING 2ND CHOICE; Start 03/19/20 at 14:45 Zolpidem Tartrate (Ambien) 5 mg PRN QHS PRN PO INSOMNIA,MRX1; Start 03/19/20 at 15:00 Ondansetron HCl (Zofran) 4 mg PRN Q8HRS PRN IV NAUSEA/VOMITING; Start 03/19/20 at 14:15; Stop 03/20/20 at 14:14; Status DC Morphine Sulfate (Morphine Sulfate) 4 mg PRN Q2HR PRN IV PAIN Last administered on 03/20/20at 01:23; Start 03/19/20 at 14:15; Stop 03/20/20 at 10:38; Status DC Sodium Chloride 1,000 ml @ 100 mls/hr Q10H IV ; Start 03/19/20 at 14:12; Stop 03/20/20 at 10:25; Status DC Hydrochlorothiazide (Microzide) 12.5 mg DAILY PO Last administered on 03/20/20at 08:54; Start 03/20/20 at 09:00 Fentanyl Citrate (Fentanyl 2ml Vial) 50 mcg PRN Q2HR PRN IVP PAIN; Start 03/20/20 at 10:45 Active Scripts Active Zofran (Ondansetron Hcl) 4 Mg Tablet 1 Tab PO PRN Q6-8HRS Promethazine Hcl 25 Mg Tablet 1 Tab PO PRN Q6HRS Oxycodone Hcl 5 Mg Capsule 5 Mg PO PRN Q6HRS PRN Ativan (Lorazepam) 0.5 Mg Tablet 0.5 Mg PO PRN Q8HRS PRN 30 Days FENTANYL 50mcg/hr (Fentanyl) 1 Each Patch.td72 1 Patch TP Q3DAYS 30 Days Percocet 5-325 Mg Tablet (Oxycodone/Acetaminophen) 1 Each Tablet 1 Tab PO PRN Q6HRS PRN 30 Days Reported Magnesium (Magnesium Oxide) 400 Mg Capsule 1 Cap PO BID 30 Days Citalopram Hbr (Citalopram Hydrobromide) 20 Mg Tablet 1 Tab PO DAILY 30 Days Eliquis (Apixaban) 5 Mg Tablet 1 Tab PO BID 30 Days Levothyroxine Sodium 100 Mcg Tablet 1 Tab PO DAILY07 30 Days Lisinopril-Hctz 20-12.5 Mg Tab (Lisinopril/Hydrochlorothiazide) 1 Each Tablet 1 Tab PO DAILY 30 Days [Smz/Tmp Ds 800-160] 1 Tab PO BID 10 Days Compazine (Prochlorperazine Maleate) 10 Mg Tablet 1 Tab PO Q6HRS 30 Days Dexamethasone 4 Mg Tablet 4 Tab PO DAILY Zolpidem Tartrate 10 Mg Tablet 10 Mg PO PRN QHS PRN Multi Tablet (Pnv No.122/Iron/Folic Acid) 1 Each Tablet 1 Tab PO DAILY 30 Days Folic Acid 0.8 Mg Capsule 1 Mg PO DAILY Vitals/I & O Vital Sign - Last 24 Hours 03/19/20 03/19/20 03/19/20 03/19/20 14:44 15:14 15:34 15:44 Pulse 96 87 100 B/P (MAP) 112/66 (81) 117/66 (83) 123/70 (87) Pulse Ox 100 96 98 98 O2 Delivery Room Air Room Air Room Air Room Air 03/19/20 03/19/20 03/19/20 03/19/20 16:14 16:44 16:44 17:14 Pulse 100 98 108 Resp 20 B/P (MAP) 117/65 (82) 129/62 (84) 164/70 (101) Pulse Ox 100 93 100 93 O2 Delivery Room Air Room Air Room Air 03/19/20 03/19/20 03/19/20 03/19/20 17:44 18:14 18:41 19:00 Temp 98.3 98.3 Pulse 106 114 111 Resp 20 18 B/P (MAP) 160/70 (100) 154/70 (98) 117/70 (86) Pulse Ox 94 89 98 98 O2 Delivery Room Air Room Air Room Air Room Air 03/19/20 03/19/20 03/19/20 03/19/20 19:11 20:00 20:25 20:25 O2 Delivery Room Air Room Air Room Air Room Air 03/19/20 03/19/20 03/19/20 03/19/20 21:04 21:25 21:25 21:25 O2 Delivery Room Air Room Air Room Air Room Air 03/19/20 03/20/20 03/20/20 03/20/20 23:00 01:23 02:05 03:00 Temp 98.0 98.4 98.0 98.4 Pulse 107 110 Resp 18 18 B/P (MAP) 122/72 (89) 119/63 (81) Pulse Ox 95 97 O2 Delivery Room Air Room Air Room Air Room Air 03/20/20 03/20/20 03/20/20 03/20/20 03:46 04:46 06:28 07:00 Temp 98.3 98.3 Pulse 108 Resp 16 B/P (MAP) 123/73 (90) Pulse Ox 97 O2 Delivery Room Air Room Air Room Air Room Air 03/20/20 03/20/20 03/20/20 08:00 08:54 11:00 Temp 97.8 97.8 Pulse 108 98 Resp 18 B/P (MAP) 123/73 129/76 (93) Pulse Ox 98 O2 Delivery Room Air Room Air Intake and Output 03/19/20 03/19/20 03/20/20 15:00 23:00 07:00 Intake Total 1050 ml 200 ml Output Total 450 ml Balance 1050 ml 200 ml -450 ml Nutrition Consultation Dietary Evaluation: Recommendations by RD: Dietary education by RD, Increase Calorie Intake, Protein supplementation Comments: continue regular diet, honor food preferences and offer snacks/ supplements from unit prn Ensure tid per pt request providing 350 kcal, 20 g protein/serving Expected Outcomes/Goals: to meet >75% est nutr needs Interpretation of weight loss: >10% in 6 months Malnutrition Findings: Food and Nutrition Intake (Sev: <50% est energy req 5days Weight Status: Appropriate Justicifation of Admission Dx: Justifications for Admission: Justification of Admission Dx: Yes RICARDO URBANO MD Mar 20, 2020 14:38
[2020-03-20 15:00] VITALS: BP 115/67
[2020-03-20] MEDS: fentaNYL PF VIAL 100 MCG/2 ML VIAL IVP PRN ×3 (16:42→21:20)
[2020-03-20 19:00] VITALS: BP 137/70
[2020-03-20] MEDS: ZOLPIDEM 5 MG TABLET. PO PRN (21:20)
[2020-03-20 23:00] VITALS: BP 123/70
[2020-03-21] MEDS: fentaNYL PF VIAL 100 MCG/2 ML VIAL IVP PRN ×6 (00:16→15:08)
[2020-03-21] MEDS: PROCHLORPERAZINE 5 MG TABLET. PO SCH ×3 (00:16→12:15)
[2020-03-21 03:00] VITALS: BP 124/69
[2020-03-21] MEDS: IV NORMAL SALINE 1000ML BAG 1,000 ML IV SCH (03:03)
[2020-03-21] MEDS: oxyCODONE IR 5 MG TABLET PO PRN ×2 (04:03→10:17)
[2020-03-21] MEDS: LEVOTHYROXINE 100 MCG TABLET PO SCH (06:14)
[2020-03-21] MEDS: oxyCODONE/APAP 5/325 1 TAB TABLET PO PRN (06:14)
[2020-03-21 07:38] VITALS: BP 135/76
[2020-03-21] MEDS: LISINOPRIL 20 MG TABLET PO SCH (10:17)
[2020-03-21] MEDS: PRENATAL MULTIVITAMIN TABLET. PO SCH (10:17)
[2020-03-21] MEDS: APIXABAN 5 MG TABLET. PO SCH (10:18)
[2020-03-21] MEDS: MAGNESIUM OXIDE 400 MG TABLET PO SCH (10:18)
[2020-03-21] MEDS: CITALOPRAM 20 MG TABLET. PO SCH (10:18)
[2020-03-21] MEDS: FOLIC ACID 1 MG TABLET. PO SCH (10:18)
[2020-03-21] MEDS: hydroCHLOROthiazide 12.5 MG CAPSULE PO SCH (10:23)
[2020-03-21] MEDS ORDERED: ANTI-COAG MONITOR BY PHARMACY. MC PRN (11:00)
[2020-03-21 11:03] VITALS: BP 117/78
--- NOTE | 2020-03-21 11:14 | NUR ---
SW following. Discussed with RN, pt did not have a good night last night. Pt sodium 130 today. RN does not anticipate discharge home. SW will continue to follow.
[2020-03-21] MEDS ORDERED: FENT1PAT93 TP (13:35)
[2020-03-21 15:00] VITALS: BP 130/74
[2020-03-21] MEDS ORDERED: HEPARIN PF 500 UNIT/5 ML DISP.SYRIN. IVP ONE (15:00)
--- NOTE | 2020-03-21 15:39 | NUR ---
Discharge Note: VICKY DUARTE [address] [place] [address] Discharge instructions and discharge home medications reviewed with Patient and a copy given. All questions have been answered and understanding verbalized. The following instructions and handouts were given: diet, activity, medication list and follow up instructions provided to patient. Discontinued lines and drains: Port A Cath deaccessed and intact. Patient discharged to Home or Self Care withFamily Membervia Wheelchair
--- NOTE | 2020-03-21 15:48 | PDOC3 ---
Discharge Summary Visit Information Date of Admission: Mar 19, 2020 Date of Discharge: Mar 21, 2020 Admitting Diagnosis Comment: Acute dehydration secondary to poor oral intake Intractable nausea and vomiting Bandemia which may be related to his underlying treatment plan which unknown at the present time if he has gotten G-CSF agents Leukocytosis can be secondary to reactive nature given his multiple emetic episodes Hypo-natremia secondary to low effective circulatory volume Hypomagnesemia Metastatic lung cancer undergoing chemo and radiation therapy Chronic pain syndrome secondary to underlying malignancy T11 metastatic disease without alarming signs Final Diagnosis Problems Medical Problems: (1) Abdominal pain Status: Acute (2) Dehydration Status: Acute (3) Metastatic primary lung cancer Status: Acute (4) Nausea & vomiting Status: Acute Brief Hospital Course Allergies Allergies Coded Allergies Type Severity Reaction Last Updated Verified Penicillins Allergy Severe Swelling 11/07/19 Yes Vital Signs Vital Signs Date Time Temp Pulse Resp B/P (MAP) Pulse Ox O2 Delivery O2 Flow Rate FiO2 03/21/20 15:08 98 Room Air 03/21/20 11:03 97.6 111 18 117/78 (91) 97.6 Lab Results Laboratory Tests Test 03/19/20 18:25 03/20/20 12:23 03/20/20 12:30 Urine Collection Type Unknown Urine Color Yellow Urine Clarity Clear Urine pH 6.5 (<5.0-8.0) Urine Specific [place] 1.015 (1.000-1.030) Urine Protein Negative mg/dL (NEG-TRACE) Urine Glucose (UA) Negative mg/dL (NEG) Urine Ketones (Stick) Negative mg/dL (NEG) Urine Blood Negative (NEG) Urine Nitrite Negative (NEG) Urine Bilirubin Negative (NEG) Urine Urobilinogen Dipstick 0.2 mg/dL (0.2 mg/dL) Urine Leukocyte Esterase Negative (NEG) Urine RBC 0 /HPF (0-2) Urine WBC Rare /HPF (0-4) Urine Squamous Epithelial Cells None /LPF Urine Bacteria 0 /HPF (0-FEW) Urine Mucus Slight /LPF Sodium Level 130 mmol/L (136-145) Potassium Level 4.0 mmol/L (3.5-5.1) Chloride Level 94 mmol/L (98-107) Carbon Dioxide Level 27 mmol/L (21-32) Anion Gap 9 (6-14) Blood Urea Nitrogen 9 mg/dL (8-26) Creatinine 0.8 mg/dL (0.7-1.3) Estimated GFR (Cockcroft-Gault) 121.9 Glucose Level 128 mg/dL (70-99) Calcium Level 9.0 mg/dL (8.5-10.1) White Blood Count 4.4 x10^3/uL (4.0-11.0) Red Blood Count 2.75 x10^6/uL (4.30-5.70) Hemoglobin 7.8 g/dL (13.0-17.5) Hematocrit 23.0 % (39.0-53.0) Mean Corpuscular Volume 84 fL (79-100) Mean Corpuscular Hemoglobin 28 pg (25-35) Mean Corpuscular Hemoglobin Concent 34 g/dL (31-37) Red Cell Distribution Width 23.8 % (11.5-14.5) Platelet Count 256 x10^3/uL (140-400) Neutrophils (%) (Auto) 70 % (31-73) Lymphocytes (%) (Auto) 6 % (24-48) Monocytes (%) (Auto) 23 % (0-9) Eosinophils (%) (Auto) 1 % (0-3) Basophils (%) (Auto) 0 % (0-3) Neutrophils # (Auto) 3.1 x10^3/uL (1.8-7.7) Lymphocytes # (Auto) 0.2 x10^3/uL (1.0-4.8) Monocytes # (Auto) 1.0 x10^3/uL (0.0-1.1) Eosinophils # (Auto) 0.0 x10^3/uL (0.0-0.7) Basophils # (Auto) 0.0 x10^3/uL (0.0-0.2) Brief Hospital Course Mr. Pino is a 54 old male with past medical history of metastatic lung cancer who presented to the emergency department with intractable nausea and vomiting acute dehydration and abdominal discomfort. The patient also has chronic back pain secondary to metastatic disease to his T11 vertebrae he did not present alarming signs and he was from most part comfortable during his hospital stay. He was put on a fentanyl pain management via the IV and this seemed to control his acute bout of pain, the patient has been prescribed fentanyl patches in the past but currently is on oxycodone since apparently his insurance was not able to pay for the patches and he was unable to pay for them himself. This seems to have resolved and we will institute his fentanyl patches again in hopes that he maintains better quality of life with a better control of his pain. Patient was given IV hydration is lab work initially presented bandemia which was of concern but this seemed to resolve on the second hospital day. No further need of laboratory data was deemed necessary given the clinical stability of the patient he was in good spirits to be discharged home and he will follow-up with Dr. Jeanne roberts oncologist in the outpatient setting next week. Signs and symptoms of yaneli rn and when to seek medical attention was discussed with the patient prior to discharge his was at bedside and all of their concerns were addressed to the best of my abilities Her operative report is as follows Assessment Assessment Gen.: Chronically ill-appearing in mild distress Head: Normal shape atraumatic Eyes: Pupils equal reactive to light and accommodation, normal conjunctivae and lids Ears: Normal shape Nose: Normal shape no trauma Mouth: No exudates of the back of throat no thrush no lesions Neck: Supple no JVD no carotid bruit or lymphadenopathy no thyromegaly Chest: Lungs clear to auscultation with good inspiratory effort no crackles rales or rhonchi Cardiovascular: S1-S2 regular rhythm no murmurs gallops or rubs Abdomen: Bowel sounds present tender to deep palpation but no rebound or peritoneal signs evident no hepatosplenomegaly appreciated sign Extremities: No clubbing no cyanosis no edema peripheral pulses palpated bilaterally Neurological: Alert awake oriented in person time place and situation, cranial nerves II through XII intact, no motor or sensory deficits appreciated Psych: Appropriate mood, cooperative Lungs: Clear Discharge Information Condition at Discharge: Improved Follow Up: Weeks Disposition/Orders: D/C to Home Scheduled Apixaban (Eliquis) 5 Mg Tablet, 1 TAB PO BID for Blood clot for 30 Days, #60 (Reported) Entered as Reported by: SCAR LENTZ MD on 12/02/192123 Last Action: Continued on 03/19/203 by RICARDO URBANO MD Citalopram Hydrobromide (Citalopram Hbr) 20 Mg Tablet, 1 TAB PO DAILY for depression for 30 Days, #30 (Reported) Entered as Reported by: SCAR LENTZ MD on 12/02/192123 Last Action: Continued on 03/19/201412 by RICARDO URBANO MD Dexamethasone (Dexamethasone) 4 Mg Tablet, 4 TAB PO DAILY for support for chemo, #8 (Reported) Entered as Reported by: TYREE PASTOR on 09/18/19857 Last Action: HELD on 03/19/201412 by RICARDO URBANO MD Fentanyl (DURAGESIC 100mcg/hr) 1 Each Patch.td72, 1 PATCH TP Q3DAYS for malignancy pain MDD 0.33 Patch(s) for 30 Days, #10 Ref 0 Prescribed by: RICARDO URBANO MD on 03/21/20 1335 Folic Acid (Folic Acid) 0.8 Mg Capsule, 1 MG PO DAILY for supplement, (Reported) Entered as Reported by: TYREE PASTOR on 09/18/19857 Last Action: Converted on 03/19/201412 by RICARDO URBANO MD Levothyroxine Sodium (Levothyroxine Sodium) 100 Mcg Tablet, 1 TAB PO DAILY07 for Hypothyroidism for 30 Days, #30 (Reported) Entered as Reported by: SCAR LENTZ MD on 12/02/192123 Last Action: Continued on 03/19/201412 by RICARDO URBANO MD Lisinopril/Hydrochlorothiazide (Lisinopril-Hctz 20-12.5 Mg Tab) 1 Each Tablet, 1 TAB PO DAILY for HTN for 30 Days, #30 (Reported) Entered as Reported by: SCAR LENTZ MD on 12/02/192123 Last Action: Converted on 03/19/201412 by RICARDO URBANO MD Magnesium Oxide (Magnesium) 400 Mg Capsule, 1 CAP PO BID for supplement for 30 Days, #60 Ref 0 (Reported) Entered as Reported by: Mohsen Bonilla on 12/03/19 0019 Last Action: Converted on 03/19/201412 by RICARDO URBANO MD Ondansetron Hcl (Zofran) 4 Mg Tablet, 1 TAB PO PRN Q6-8HRS for nausea, #12 Prescribed by: RAE GREEN MD on 02/29/20 1742 Last Action: Converted on 03/19/201412 by RICARDO URBANO MD Pnv No.122/Iron/Folic Acid ( Multi Tablet) 1 Each Tablet, 1 TAB PO DAILY for supplement for 30 Days, #30 Ref 0 (Reported) Entered as Reported by: TYREE PASTOR on 09/18/19857 Last Action: Converted on 03/19/201412 by RICARDO URBANO MD Prochlorperazine Maleate (Compazine) 10 Mg Tablet, 1 TAB PO Q6HRS for nausea/vomiting for 30 Days, #120 Ref 0 (Reported) Entered as Reported by: TYREE PASTOR on 09/18/19857 Last Action: Converted on 03/19/201413 by RICARDO URBANO MD Promethazine Hcl (Promethazine Hcl) 25 Mg Tablet, 1 TAB PO PRN Q6HRS for nausea and vomiting, #20 Prescribed by: RAE GREEN MD on 02/29/201741 Last Action: Converted on 03/19/201413 by RICARDO URBANO MD [Smz/Tmp Ds 800-160] , 1 TAB PO BID for infection for 10 Days, #20 (Reported) Entered as Reported by: TYREE PASTOR on 09/18/19857 Last Action: HELD on 03/19/201412 by RICARDO URBANO MD Scheduled PRN Lorazepam (Ativan) 0.5 Mg Tablet, 0.5 MG PO PRN Q8HRS PRN for ANXIETY / AGITATION for 30 Days, #30 Prescribed by: SCAR LENTZ MD on 07/16/19 1311 Last Action: Continued on 03/19/201412 by RICARDO URBANO MD Oxycodone Hcl (Oxycodone Hcl) 5 Mg Capsule, 5 MG PO PRN Q6HRS PRN for PAIN, #20 Ref 0 Prescribed by: RAE GREEN MD on 02/29/201741 Last Action: Converted on 03/19/201412 by RICARDO URBANO MD Oxycodone/Apap 5-325 (Percocet 5-325 Mg Tablet ) 1 Each Tablet, 1 TAB PO PRN Q6HRS PRN for PAIN for 30 Days, #120 Prescribed by: SCAR LENTZ MD on 07/16/19 1309 Last Action: Continued on 03/19/201412 by RICARDO URBANO MD Zolpidem Tartrate (Zolpidem Tartrate) 10 Mg Tablet, 10 MG PO PRN QHS PRN for INSOMNIA, Ref 0 (Reported) Entered as Reported by: TYREE PASTOR on 09/18/19 0858 Last Action: Converted on 03/19/20 141 by RICARDO URBANO MD Discontinued Medications Fentanyl (FENTANYL 50mcg/hr) 1 Each Patch.td72, 1 PATCH TP Q3DAYS for Bony metastatic disease for 30 Days, #10 Prescribed by: SCAR LENTZ MD on 07/16/19 1309 Last Action: Continued on 03/19/20 141 by RICARDO URBANO MD Justicifation of Admission Dx: Justifications for Admission: Justification of Admission Dx: Yes RICARDO URBANO MD Mar 21, 2020 15:48
[2020-03-22] MEDS ORDERED: fentaNYL 50MCG/HR PATCH 1 PATCH PATCH.TD72 TD SCH (09:00)
== END 2020-03-21 15:20 | disposition home or self-care (01) | DRG 640 ==
LOC: ER 10:45 → ED HOLD 14:00 → 4 NORTH 16:40
PROVIDERS: ADMIT Internal Medicine; ATTEND Internal Medicine
DX: E86.0 Dehydration (principal); E43 Unspecified severe protein-calorie malnutrition; C78.2 Secondary malignant neoplasm of pleura; C34.90 Malignant neoplasm of unspecified part of unspecified bronchus or lung; C79.51 Secondary malignant neoplasm of bone; E87.1 Hypo-osmolality and hyponatremia; Z68.21 Body mass index [BMI] 21.0-21.9, adult; E03.9 Hypothyroidism, unspecified; E83.42 Hypomagnesemia; G89.4 Chronic pain syndrome; I11.0 Hypertensive heart disease with heart failure; I50.9 Heart failure, unspecified; Z82.49 Family history of ischemic heart disease and other diseases of the circulatory system; Z85.118 Personal history of other malignant neoplasm of bronchus and lung; Z87.891 Personal history of nicotine dependence; Z92.21 Personal history of antineoplastic chemotherapy; Z88.0 Allergy status to penicillin; D72.829 Elevated white blood cell count, unspecified; G89.3 Neoplasm related pain (acute) (chronic)
CPT/HCPCS: 36415; 74022; 80048; 80053; 81001; 83690; 83735; 85007; 85025; 85610; 85730; 96361; 96365; 96375; 96376; 99285; J1200; J1642; J2270; J2405; J3010; J3475; J7030; G0378; Q0164

== ENCOUNTER → 2020-03-25 | Outpatient (CLI) | payer MEDICAID ==
[2020-03-21 15:00] VITALS: BP 130/74
[~2020-03-25] MED LIST changes: +CONTRAST GIVEN. MC PRN; +FENT1PAT93 TP; +HEPARIN PF 500 UNIT/5 ML DISP.SYRIN. IVP ONE; +IOHEXOL 240 MG/ML 50ML VIAL. PO ONE; +IOHEXOL 300 MG/ML 100ML VIAL. IV ONE; -LISI1TAB19 PO; +LISI1TAB37 PO
--- NOTE | 2020-03-26 04:29 | RAD ---
CT chest abdomen and pelvis with contrast: Reason for examination: Lung cancer. Follow-up exam. Helical images were obtained through the chest, abdomen and pelvis with intravenous administration of 75 cc Omnipaque 300 and oral contrast administration of 50 cc Omnipaque 240. Reconstruction was performed in sagittal and coronal planes. Exposure: One or more of the following individualized dose reduction techniques were utilized for this examination: 1. Automated exposure control 2. Adjustment of the mA and/or kV according to patient size 3. Use of iterative reconstruction technique. There continues to be a mass in the anterior mediastinum measuring approximately 5.2 x 4.1 x 5.7 cm in greatest dimensions which shows no significant change. The trachea and mainstem bronchi show no intraluminal lesions. No abnormality seen at the esophagus. The thoracic aorta is normal in course and caliber. The heart size is normal with no pericardial effusion. There does appear to be an enlarging mass present however in the fat pad anterior lateral to the heart measuring approximately 4.2 cm in greatest dimension. There is also a soft tissue mass probably representing an enlarged lymph node in the left axilla measuring 3.1 x 3.4 cm in greatest dimensions.No pulmonary embolus is evident. The lung dominique continue show an enlarging mass in the right upper lobe measuring 2 cm in greatest dimension. There also patchy infiltrates in the right upper lobe and left upper lobe. There also appears to be a new pleural-based mass in the superior segment of the right lower lobe along the pleural surface posterior medially (series 2 image 24) measuring approximately 8.4 mm in greatest dimension. There also continues to be a pleural-based mass in the posterior right lung base measuring 1.8 cm in greatest dimension which shows no significant change. No abnormality seen at the liver, spleen, pancreas or gallbladder. There are bilateral adrenal masses present with the mass on the right adrenal gland measuring 3.1 cm in greatest dimension and does not some the left adrenal gland measuring 4.6 cm in greatest dimension. These have enlarged since previous exam. The kidneys show no renal masses, hydronephrosis or renal calculi. The colon shows diverticuli in the sigmoid colon but no diverticulitis or colitis. The small intestinal tract shows no abnormal dilatation or obstruction. There is contrast in the stomach and small intestinal tract. The stomach shows no wall thickening or obstruction. Within the mesentery at the mid abdomen and laterally in the mid right abdomen, there are soft tissue masses measuring 4.8 x 4.1 cm in greatest dimension and 4.8 x 2.8 cm in greatest dimension. There is also a 3.7 x 3.1 cm mass posterior in the peritoneal cavity on the left. These masses have increased in size since previous exams. No abnormality seen at the bladder. Prostate gland contains calcifications. Seminal vesicles are symmetric. No free fluid or free air seen in the abdomen or pelvis. Multiple lytic bone lesions consistent with bony metastases in the T11 vertebral body in the left iliac wing and the left is shown and the left femoral head. IMPRESSION: Enlarging mass in the right upper lobe measuring 2 cm in greatest dimension. No significant change in the mass in the anterior mediastinum measuring 5.7 cm in greatest dimension. New infiltrates in the right upper lobe and left upper lobe. New pleural-based mass appears segment of the right lower lobe measuring 8.4 mm in size. Unchanged pleural-based mass posteriorly at the right lung base measuring 1.8 cm in greatest dimension. Enlarging mass in the anterior fat pad adjacent to the left ventricle of the heart measuring 4.2 cm in size. 3.1 x 3.4 cm mass in the left axilla probably representing an enlarged lymph node. Enlarging adrenal metastases. Enlarging intra-abdominal mesenteric masses measuring up to 4.8 cm in greatest dimension. Lytic bone lesions consistent with metastases. Electronically signed by: Maisha Mata MD (03/26/2020 4:26 AM) [id number]
== END ==
LOC: CT 09:18
PROVIDERS: ATTEND Internal Medicine Hematology & Oncology
DX: C34.11 Malignant neoplasm of upper lobe, right bronchus or lung (principal)
CPT/HCPCS: 71260; 74177; J1642; Q9966; Q9967

== ENCOUNTER 2020-04-29 14:07 | Inpatient (IN) | payer MEDICAID ==
[~2020-04-29] VITALS: Ht 188 cm; Wt 54.0 kg
[~2020-04-29 14:07] MED LIST changes: -CONTRAST GIVEN. MC PRN; -HEPARIN PF 500 UNIT/5 ML DISP.SYRIN. IVP ONE; -IOHEXOL 240 MG/ML 50ML VIAL. PO ONE; -IOHEXOL 300 MG/ML 100ML VIAL. IV ONE; +ZOLP5TAB PO
[2020-04-29 14:41] VITALS: BP 122/52
[2020-04-29 14:42] LABS: BASO % 0 % (0-3); EOS # 0.1 x10^3/uL (0.0-0.7); EOS % 0 % (0-3); HEMOGLOBIN 7.8 g/dL (13.0-17.5); LYMPH % 5 % (24-48); MEAN CORPUSCULAR HEMOGLOBIN 27 pg (25-35); MEAN CORPUSCULAR HGB CONC 33 g/dL (31-37); MEAN CORPUSCULAR VOLUME 82 fL (79-100); MONO # 2.3 x10^3/uL (0.0-1.1); MONO % 12 % (0-9); NEUT # 16.1 x10^3/uL (1.8-7.7); NEUT % 83 % (31-73); PLATELET COUNT 303 x10^3/uL (140-400); RED BLOOD COUNT 2.94 x10^6/uL (4.30-5.70); RED CELL DISTRIBUTION WIDTH 20.8 % (11.5-14.5); WHITE BLOOD COUNT 19.4 x10^3/uL (4.0-11.0)
[2020-04-29] MEDS ORDERED: IV NORMAL SALINE 1000ML BAG 1,000 ML IV ONE (14:45)
[2020-04-29 14:52] LABS: CALCIUM 9.9 mg/dL (8.5-10.1); CREATININE 0.7 mg/dL (0.7-1.3); GFR 142.2; POTASSIUM 4.4 mmol/L (3.5-5.1)
--- NOTE | 2020-04-29 14:55 | RAD ---
PORTABLE CHEST 1V History: Shortness of breath Comparison: March 19, 2020 Findings: Single view of the chest is submitted. There is again superior mediastinal masslike opacity greater on the right. There is again right upper lobe infiltrate and nodularity. There is no dependent pleural fluid, pneumothorax or new infiltrate. Heart size is stable. Impression: 1. There is superior mediastinal masslike opacity as seen previously, also right upper lobe infiltrate and nodularity. Electronically signed by: Davis Cleary MD (04/29/2020 2:52 PM) [id number]
[2020-04-29 14:57] LABS: ALBUMIN 2.2 g/dL (3.4-5.0); ALBUMIN/GLOBULIN RATIO 0.4 (1.0-1.7); TOTAL BILIRUBIN 0.4 mg/dL (0.2-1.0); TOTAL PROTEIN 7.9 g/dL (6.4-8.2)
[2020-04-29 15:01] LABS: PROTHROMBIN TIME PATIENT 18.7 SEC (11.7-14.0)
[2020-04-29 15:11] LABS: % BASOS 1 % (0-3); % EOS 2 % (0-5); % LYMPHS 9 % (24-48); % MONOS 6 % (0-10); % SEGS 82 % (35-66)
[2020-04-29 15:12] LABS: ANISOCYTOSIS MOD; PLT ESTIMATE ADEQUATE (ADEQUATE); POLYCHROMASIA SLIGHT
--- NOTE | 2020-04-29 15:28 | EKG ---
[facility] [address] [place] [address] Test Date: 2020-04-29 Test Time: 14:20:24 Pat Name: VICKY DUARTE Department: Room: Gender: M [employer]: : 1965 Requested By: JEFF BROCK Order Number: [id number] Reading MD: Measurements Intervals [place] Rate: 126 P: -32 MD: 96 QRS: 16 QRSD: 76 T: 66 QT: 296 QTc: 429 Interpretive Statements SINUS TACHYCARDIA LEFT ATRIAL ABNORMALITY ABNORMAL ECG RI6.02 No previous ECG available for comparison
[2020-04-29] MEDS ORDERED: fentaNYL PF VIAL 100 MCG/2 ML VIAL IVP ONE (16:00)
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
[2020-04-29] MEDS ORDERED: IV NORMAL SALINE 1000ML BAG 1,000 ML IV SCH (17:25)
[2020-04-29] MEDS ORDERED: MORPHINE SULFATE 2 MG/ML VIAL. IV PRN (17:30)
[2020-04-29] MEDS ORDERED: ONDANSETRON PF 4 MG/2 ML VIAL. IV PRN ×2 (17:30→18:00)
[2020-04-29] MEDS ORDERED: ZOLPIDEM 5 MG TABLET. PO PRN (19:15)
[2020-04-29] MEDS ORDERED: oxyCODONE/APAP 5/325 1 TAB TABLET PO PRN (19:15)
[2020-04-29] MEDS ORDERED: LORazepam 0.5 MG TABLET PO PRN (19:15)
[2020-04-29 19:29] LABS: BILIRUBIN,URINE NEGATIVE (NEG); CLARITY,URINE CLEAR; COLOR,URINE YELLOW; NITRITE,URINE NEGATIVE (NEG); PROTEIN,URINE NEGATIVE (NEG-TRACE); UROBILINOGEN,URINE 0.2 mg/dL (0.2 mg/dL)
[2020-04-29] MEDS ORDERED: LEVO500T59 PO (19:29)
[2020-04-29] MEDS ORDERED: PROMETHAZINE 12.5 MG TABLET. PO PRN (19:30)
[2020-04-29 19:35] LABS: BACTERIA,URINE 0 /HPF (0-FEW); RBC,URINE OCC /HPF (0-2); SQUAMOUS EPITHELIAL CELL,UR FEW /LPF; WBC,URINE 0 /HPF (0-4)
[2020-04-29] MEDS ORDERED: APIXABAN 5 MG TABLET. PO SCH (21:00)
[2020-04-29] MEDS ORDERED: MAGNESIUM OXIDE 400 MG TABLET PO SCH (21:00)
[2020-04-29] MEDS ORDERED: ANTI-COAG MONITOR BY PHARMACY. MC PRN (22:00)
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
[2020-04-30] MEDS ORDERED: LEVOTHYROXINE 100 MCG TABLET PO SCH (06:00)
[2020-04-30] MEDS ORDERED: PRENATAL MULTIVITAMIN TABLET. PO SCH (09:00)
[2020-04-30] MEDS ORDERED: CITALOPRAM 20 MG TABLET. PO SCH (09:00)
== END 2020-04-29 21:35 | disposition home or self-care (01) | DRG 180 ==
LOC: ER 14:07 → ED HOLD 17:21
PROVIDERS: ADMIT Internal Medicine; ATTEND Internal Medicine
DX: C34.10 Malignant neoplasm of upper lobe, unspecified bronchus or lung (principal); E43 Unspecified severe protein-calorie malnutrition; E87.1 Hypo-osmolality and hyponatremia; C79.31 Secondary malignant neoplasm of brain; C79.51 Secondary malignant neoplasm of bone; C79.89 Secondary malignant neoplasm of other specified sites; Z68.1 Body mass index [BMI] 19.9 or less, adult; D72.829 Elevated white blood cell count, unspecified; E03.9 Hypothyroidism, unspecified; E27.8 Other specified disorders of adrenal gland; G89.3 Neoplasm related pain (acute) (chronic); I11.0 Hypertensive heart disease with heart failure; I50.9 Heart failure, unspecified; M41.9 Scoliosis, unspecified; Z66 Do not resuscitate; Z82.49 Family history of ischemic heart disease and other diseases of the circulatory system; Z85.118 Personal history of other malignant neoplasm of bronchus and lung; Z87.891 Personal history of nicotine dependence; Z88.0 Allergy status to penicillin; Z79.899 Other long term (current) drug therapy; D64.81 Anemia due to antineoplastic chemotherapy
CPT/HCPCS: 36415; 71045; 80053; 81001; 83605; 83690; 84484; 85007; 85025; 85610; 85730; 87040; 93005; 96361; 96365; 96375; 99285; J1956; J2270; J2405; J3010; J7030; Q0169